=== PATIENT | female | born 1950 | race Caucasian/White ===

== ENCOUNTER → 2018-01-12 08:11 | Outpatient (CLI) | payer MEDICARE, BC, SELFPAY ==
[2018-01-12 09:45] LABS: Alanine Aminotransferase 21 U/L (12-78); Albumin Level 3.8 gm/dL (3.4-5.0); Albumin/Globulin Ratio 1.4 (1.1-1.8); Anion Gap 14.7 mEq/L (5-15); Aspartate Amino Transferase 13 U/L (15-37); Bilirubin,Total 0.4 mg/dL (0.2-1.0); Blood Urea Nitrogen 15 mg/dL (7-18); Calcium 9.3 mg/dL (8.5-10.1); Carbon Dioxide 26 mmol/L (21.0-32.0); Chloride 106 mmol/L (98-107); Creatinine,Serum 1.03 mg/dL (0.55-1.02); Estimated Glomerular Filt Rate 53 ml/min (>60); GFR (African American) 64 ML/MIN (>60); Globulin 2.7 gm/dl (1.3-3.2); Glucose 122 mg/dL (74-106); Potassium 4.7 mmoL/L (3.5-5.1); Sodium 142 mmol/L (136-145); Total Protein,Serum 6.5 gm/dL (6.4-8.2); Triglycerides 145 mg/dL (30-200); VLDL Cholesterol 29 mg/dL (0-40)
[2018-01-12 09:46] LABS: Alkaline Phosphatase 90 U/L (46-116); Chol/HDL Ratio 2.8 (1-3.5); Cholesterol 126 mg/dL (140-200); HDL Cholesterol 45 mg/dL (29-89); LDL Cholesterol 52 mg/dL (0-130); Thyroid Stimulating Hormone 2.08 uIU/ml (0.358-3.740)
[2018-01-12 10:57] LABS: Hemoglobin A1C 6.8 % (0.0-7.0)
== END ==
PROVIDERS: Visit Provider Family Medicine
DX: R73.01 Impaired fasting glucose (principal); E03.9 Hypothyroidism, unspecified; E78.5 Hyperlipidemia, unspecified; I10 Essential (primary) hypertension
CPT/HCPCS: 36415; 80053; 80061; 83036; 84443

== ENCOUNTER → 2018-02-14 12:10 | Outpatient (CLI) | payer MEDICARE, BC, SELFPAY ==
--- NOTE | 2018-02-14 | XR_ITS ---
XR chest 2V HISTORY: Hypertension ITS.REASON: PRE-OP ..HTN..QUIT SMOKING IN 1972 ORDERING PHYSICIAN: Ned Branham MD PATIENT AGE: 67 years COMPARISON: None FINDINGS: Mild cardiomegaly without failure. No lobar consolidation or collapse. There is increased density along left heart border and may be related to pericardial fat pad. The remaining lungs are clear. No acute bony anomalies. IMPRESSION: Cardiomegaly, no acute finding
[2018-02-14 12:42] LABS: Basophils % 0.3 % (0.1-2.0); Eosinophils # 0.4 K/mm3 (0.0-0.4); Eosinophils % 3.5 % (0.1-12.0); Hematocrit 43.3 % (37.0-47.0); Hemoglobin 13.5 g/dL (12.2-16.2); Lymphocytes # 2.9 K/mm3 (0.7-4.5); Mean Corpuscular HGB Conc 31.2 g/dL (31.8-35.4); Mean Corpuscular Hemoglobin 26.8 pg (27.0-31.2); Mean Corpuscular Volume 85.9 fl (81-99); Mean Platelet Volume 8.1 fl (7.4-10.4); Monocytes # 0.5 K/mm3 (0.1-1.0); Monocytes % 4.4 % (1.7-9.3); Neutrophils # 6.5 K/mm3 (1.8-7.8); Neutrophils % 63.8 % (37.0-80.0); Platelet Count 263 K/mm3 (142-424); Red Blood Count 5.04 M/mm3 (4.20-5.40); Red Cell Distribution Width 14.5 % (11.5-17.5); White Blood Count 10.2 K/mm3 (4.8-10.8)
[2018-02-14 13:20] LABS: Alanine Aminotransferase 24 U/L (12-78); Albumin/Globulin Ratio 1.3 (1.1-1.8); Alkaline Phosphatase 91 U/L (46-116); Anion Gap 14.2 mEq/L (5-15); Aspartate Amino Transferase 20 U/L (15-37); Bilirubin,Total 0.5 mg/dL (0.2-1.0); Blood Urea Nitrogen 19 mg/dL (7-18); Calcium 9.8 mg/dL (8.5-10.1); Carbon Dioxide 27 mmol/L (21.0-32.0); Chloride 105 mmol/L (98-107); Creatinine,Serum 0.96 mg/dL (0.55-1.02); Estimated Glomerular Filt Rate 58 ml/min (>60); GFR (African American) 70 ML/MIN (>60); Glucose 108 mg/dL (74-106); Potassium 4.2 mmoL/L (3.5-5.1); Sodium 142 mmol/L (136-145)
== END ==
PROVIDERS: Visit Provider Orthopaedic Surgery
DX: Z01.810 Encounter for preprocedural cardiovascular examination (principal); Z01.812 Encounter for preprocedural laboratory examination
CPT/HCPCS: 36415; 71046; 80053; 85025; 86850; 93005

== ENCOUNTER 2018-02-19 10:22 | Inpatient (IN) ==
--- NOTE | 2018-02-19 14:12 | Progress Note ---
[facility] Anesthesia Checklist - Patient Identification Patient Identification: Arm Band, Verbal (Name & ) - Structural Data Admitted From: Home Planned Operative Procedure/s: orif left tibial plateau fx Consent for Planned Operative Procedure(s) Verified: Yes Verified Documents: Surgical Consent, History and Physical - NPO Status Verified Time NPO: 00:00 - Additional verifications Patient : No Anesthesia Reactions: No Hx Blood Transfusions: No Blood Transfusion Reaction: No Cephalosporin Allergy: No Previous Colonoscopy: No - Cardiovascular Assessment Heart Sounds: S1 & S2 Pulse Strength: Baseline Pulse Rhythm: Regular Peripheral Edema: No - Airway Assessment C-Spine Mobility Assessed: Yes TMJ Mobility Assessed: Yes Dentition: Good Dentition - Neurological Assessment Level of Consciousness: Awake, Alert, Appropriate Hx Seizures: No Numbness or tingling in extremities: No - Anesthesia Plan Anesthesia Risk discussed: Yes Anesthesia Plan: Verified ASA Class: III Anesthesia Type: General [facility] Anesthesia HX I have reviewed the patient's past medical history: Yes Medical History: Reports:: Anxiety, Asthma, Depression, Gastroesophageal Reflux Disease(GERD), Hyperlipidemia, Hypertension Denies:: Cancer, Diabetes Mellitus Type 1, Diabetes Mellitus Type 2, MRSA, Seizures Other Medical History: Reports: Cataracts, Hypothyroidism. Denies: Blood Transfusion Reaction Laterality Cases: Bilateral: Cataract, Tonsillectomy Other Surgeries: Yes: Colonoscopy, Colon Resection, EGD, Other Amputation: No Fractures: Yes *Family Hx:: Cancer, Diabetes, Hyperlipidemia, Hypertension
--- NOTE | 2018-02-19 19:21 | Progress Note ---
[facility] Anesthesia Record Part I Intake, IV Amount: 1,100 Estimated blood loss (mL): 50 Urine output (mL): 400 Blood Products used (#): none Blood Pressure: 130/75 SaO2: 93 Pulse Rate: 100 Respiratory Rate: 18 Temperature: 97.4 F Patient is:: Drowsy, Nasal O2, Stable
--- NOTE | 2018-02-19 19:22 | Progress Note ---
[facility] Anesthesia Record Part II Discharge Time: 19:47 Destination: Medical Surgical Department PACU nurse assessment reviewed?: Yes Patient Condition:: Good Anesthesia Complications:: None
--- NOTE | 2018-02-19 19:40 | Operative Note ---
Date of procedure: 02/19/18 Pre-op Diagnosis:: 1. Closed split, depression fracture lateral tibial plateau, left knee 2. Closed displaced avulsion fracture distal phalanx, right great toe Post-op Diagnosis:: 1. Closed split, depression fracture lateral tibial plateau, left knee 2. Closed displaced avulsion fracture distal phalanx, right great toe Procedure performed:: 1. Open reduction and internal fixation with bone grafting, lateral tibial plateau, left knee 2. Suture anchor repair of EHL tendon, right great toe Surgeon:: Ned Branham MD Wraparound Facilitator(s):: Dr. Dockery OUTDOOR FITNESS TRAINER:: Constantine Ford Anesthesia: GETA Estimated blood loss (mL): 50 Clinical Note:: Patient is a pleasant 67 year old female who sustained injury to her left knee, left ankle and right big toe when she fell down walking while vacationing in [place] on February 08, 2018. She says she was walking across a boardwalk with her and part of the boardwalk gave away and threw her forward and to the right side. She is not sure as to the mechanism of injury to her left knee but thinks that the knee was forced inwards when she fell down. She states that her LEFT knee and ankle became painful and swelled up immediately and she also felt pain in her right big toe. Following the injury she went to the local Emergency Room in [place] where she was diagnosed with a left tibial plateau fracture, left ankle sprain and a right big toe avulsion fracture. She was appropriately immobilized and was advised to see an orthopedic surgeon as soon as possible. She reports that she had burstitis in the LEFT knee prior to this injury. No history of any previous knee injury or surgery. No history of any distal tingling or numbness. 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 She is a borderline diabetic and a non-smoker. Prior to the fall she was mobile and independent and was not using any walking aids. Evaluation in the office is consistent with the above diagnoses. Following evaluation in my office a few days ago, patient was brought for surgery for fixation of the left lateral tibial plateau fracture and repair of the EHL avulsion right great toe. The surgery is indicated to relieve the pain and improve the function of her left knee and right big toe. Operative findings:: Examination of the LEFT knee under anesthesia was performed. A large amount of knee effusion was noted. Knee range of motion was 5-100 degrees of flexion. Grade 1 valgus laxity noted otherwise the knee joint is noted to be ligamentously stable. Intraoperatively, as seen on the preoperative imaging, a split, depression fracture of the lateral tibial plateau was noted. The lateral meniscus was noted to be intact. The bone quality was overall very good. With regards to her right great toe, the EHL tendon was completely avulsed with small comminuted bone fragments from the distal phalanx. The fragments were too small to be internally fixed and therefore had to be excised. The tendon was appropriately repaired using suture anchors. Operative note:: On the day of surgery, I again reviewed the clinical and imaging findings with the patient and her . I have discussed the diagnosis, natural history, management options in detail including both nonsurgical and surgical. Given the nature of the injuries, with the split depression fracture of the lateral tibial plateau of her left knee and the EHL avulsion fracture of the right big toe, I have recommended surgical remediation in the form of an open reduction and internal fixation with bone grafting for her left tibial plateau fracture and open reduction and internal fixation/tendon repair for her right big toe. Following a detailed discussion she wished to proceed with surgery. I have discussed the proposed surgical procedures, risks and benefits and alternatives. We've outlined where the incisions will be on the skin. Risks of surgery discussed include but are not limited to- infection, injury to nerves ( specifically injury to the peroneal nerve) and blood vessels, injury to tendons , compartment syndrome, problems with the wound healing including skin and soft tissue loss, DVT/PE, malunion, nonunion, stiffness, heterotopic ossification, CRPS (complex regional pain syndrome- pain, sensory and temperature changes, swelling and stiffness), painful/prominent hardware, loss of fixation, arthritis , incomplete relief of pain, incomplete return of function, and likely need for further surgery in future and also the risks of anesthesia including heart attack, stroke, and even . We've discussed how there is a small but real possibility of loss of use of the leg, loss of the leg (amputation) or loss of life itself. With regards to the right big toe, I have discussed about stiffness, arthritis, loss of fixation, likely need for further surgery in future including arthrodesis of the IP joint. I have discussed about the bone grafting options for her left proximal tibia including auto and allografts as well as bone graft substitutes. I have discussed the pros and cons of each option in detail. I have told her that we would be using bank bone or bone graft substitutes to fill the void in the proximal tibia. We've also explained how additional surgery may be required and specifically discussed about the likely need for implant removal in future if she needs a total knee arthroplasty. We explained the weightbearing status, immobilization required, the likely need for physical therapy, the possibility of stiffness or arthrofibrosis, chronic pain and we've also discussed the option of nonsurgical treatment. The patient expressed a good understanding and asked appropriate questions. All her questions were answered and she verbalized a good understanding. She desires to proceed with the planned open reduction internal fixation of the left tibial plateau fracture with bone grafting and open reduction internal fixation/tendon repair for her right big toe. A physical examination was performed and documented. The consent form was reviewed and signed. Patient understood the risks, agreed to proceed with surgery, signed the consent form and no guarantees or assurances were given or implied. Patient was brought to the operating room and placed supine on the operating table. All the bony prominences were appropriately padded. A general anesthesia was administered by the anesthesia team. 1. ORIF lateral tibial plateau: First we performed ORIF of the lateral tibial plateau left knee. A well-padded tourniquet cuff was placed over the LEFT upper thigh. Examination of the LEFT knee under anesthesia was performed. A large amount of knee effusion was noted. Knee range of motion was 5-100 degrees of flexion. Grade 1 valgus laxity noted otherwise the knee joint is noted to be ligamentously stable. The LEFT knee was then prepped and draped in the usual sterile fashion. A preprocedure timeout was performed as per protocol. Administration of prophylactic IV antibiotics (Ancef 2 g) was confirmed with the anesthetic team. 1 more gram of Ancef was given intravenously about 2 hours after starting the procedure. The proposed incision was marked on the skin centering over the Gerdy's tubercle. The limb was exsanguinated with Esmarch bandage and the tourniquet was inflated to 350 mmHg. Total tourniquet time is 124 minutes. I then made a straight skin incision for anterolateral approach to the lateral tibial plateau. The incision was carried through the subcutaneous tissue and the iliotibial band was split centering over the Gerdy's tubercle. The iliotibial band was elevated along with the subperiosteal elevation of the proximal attachment of the tibialis anterior muscle from the proximal tibia. A sub-meniscal arthrotomy was performed after placing 2-0 Ethibond tag stitches into the capsule and meniscus. A large hemarthrosis was evacuated from the knee and the joint irrigated with normal saline. This facilitated visualization of the split depression fracture of the lateral tibial plateau. The lateral meniscus was noted to be intact. A depressed posterolateral piece of the articular surface was encountered. The split component of the fracture was very thin and we felt it is not suitable to elevate the articular surface through the split component. Therefore we made a cortical window lower down over the lateral tibial metaphysis. We then accomplished reduction of the articular surface by elevating the fragments from below using various elevators and bone tamps. After achieving satisfactory elevation of the lateral condyle and very good reduction of the articular fragments, the metaphyseal defect has been grafted with allograft bone chips, which were impacted into place from underneath. Next, the split component of the fracture was reduced into place and a pre- contoured Camille lateral proximal tibial locking plate was applied to the lateral aspect of the tibial plateau and held in position with K wires. After confirming satisfactory position of the plate, it was secured into place with both locking and nonlocking screws. All screws were placed in standard AO fashion. C-arm fluoroscopy was used to confirm excellent position of the articular surface on both the AP and lateral fluoroscopic images, as well as positioning of all screws and hardware. I then augmented grafting of the the metaphyseal void using the Hydroset synthetic bone graft substitute. I let this set for a few minutes and then irrigated the knee joint as well as the wound with normal saline. Next, the submeniscal arthrotomy was closed using 2- 0 Ethibond sutures and tied down to the plate. Then the tourniquet was deflated and hemostasis obtained with diathermy cautery. The IT band was closed with 0 Vicryl suture in [id number] fashion followed by closure of the subcutaneous layer with 2-0 Vicryl sutures. The skin was closed with 4-0 Monocryl subcuticular sutures, Dermabond and Steri-Strips. Sterile dressings and pressure bandage was applied. The tourniquet cuff was removed from the thigh. The knee was placed in a knee immobilizer. She tolerated the procedure well and there were no immediate complications. The swab, needle and instruments counts were correct according to scrub team at the end of the procedure. Next we proceed with repair of the EHL avulsion of the right big toe. 2. Repair of the EHL avulsion, right big toe: The right foot was prepped and draped in the usual sterile fashion. A preprocedure timeout was performed as per the hospital protocol. A T-shaped skin incision was marked over the IP joint for EHL avulsion repair. A digital tourniquet was applied at the base of the big toe. The total tourniquet time was approximately 20 minutes. Then the transverse skin incision was made over the IP joint and carried in a single layer to the capsule. After opening the joint, we have noted that the EHL tendon is completely avulsed from the dorsal base of the terminal phalanx with small comminuted bone fragments attached. The fragments were very small and comminuted; therefore, the bone fragments were not suitable for fixation with the screws or K wires. Therefore, we decided to excise the bone fragments and repair the tendon using the suture anchors. To facilitate this I extended the incision proximally in a T-shaped fashion over the dorsum of the toe. This exposed sufficient length of the EHL tendon for repair. I then freshened the site of the bone avulsion and placed two Parcus 2 mm MiTi suture anchors into the terminal phalanx. Each anchor came with 2 separate sutures for tendon repair. I used these to place Welch whipstitch sutures through the tendon. The suture ends were tied to each other bringing the tendon stump onto the raw area over the distal phalanx. This gave us a very good tension-free repair of the EHL tendon onto the terminal phalanx. The toe was put through motion and we noted the fixation to be adequate and stable. Appropriate anchor placement was confirmed under C-arm fluoroscopy imaging. The wound was irrigated with normal saline. Then we proceeded with wound closure in a single layer using 4-0 Ethilon interrupted sutures. The digital tourniquet was removed and I injected 5 mL of 0.25% Marcaine for ring block for the right big toe. Sterile dressings were applied. The patient was then reversed from the anesthetic and transferred onto the [facility]. She was then transported to the postoperative recovery area in stable condition. She tolerated the procedures well and there were no immediate complications. The swab, needle and instruments counts were correct according to scrub team at the end of the procedure. Portable x-rays of LEFT knee AP and lateral views and x- rays of the right foot were obtained in the PACU and were noted to be satisfactory. Postoperatively patient was admitted for observation and further doses of prophylactic antibiotics, DVT prophylaxis as per protocol and IV and oral analgesia as needed. She can be mobilized on first postoperative day with a walker, weight bearing on the right side, heel walking with the Ortho heel as tolerated. Remain strictly nonweightbearing on the left side and keep the knee immobilizer on all the time; follow-up in the office in 1 week's time for wound check and to start passive range of knee movements in a range of motion knee brace. Tourniquet time (min): 124 (Digital tourniquet, right great toe- about 20 minutes) Condition: stable Disposition: floor Specimens:: None Complications:: None
[2018-02-20 06:23] LABS: Basophils % 0.2 % (0.1-2.0); Eosinophils # 0.1 K/mm3 (0.0-0.4); Eosinophils % 0.3 % (0.1-12.0); Hematocrit 40.4 % (37.0-47.0); Hemoglobin 12.6 g/dL (12.2-16.2); Lymphocytes # 3.2 K/mm3 (0.7-4.5); Lymphocytes % 17.6 K/mm3 (10-50); Mean Corpuscular HGB Conc 31.1 g/dL (31.8-35.4); Mean Corpuscular Hemoglobin 27.4 pg (27.0-31.2); Mean Platelet Volume 8.3 fl (7.4-10.4); Monocytes # 1.4 K/mm3 (0.1-1.0); Monocytes % 7.6 % (1.7-9.3); Neutrophils # 13.6 K/mm3 (1.8-7.8); Neutrophils % 74.3 % (37.0-80.0); Platelet Count 311 K/mm3 (142-424); Red Blood Count 4.59 M/mm3 (4.20-5.40); Red Cell Distribution Width 14.3 % (11.5-17.5); White Blood Count 18.3 K/mm3 (4.8-10.8)
[2018-02-20 06:37] LABS: Anion Gap 11.9 mEq/L (5-15); Calcium 8.5 mg/dL (8.5-10.1); Potassium 4.9 mmoL/L (3.5-5.1)
--- NOTE | 2018-02-20 07:40 | Pharmacy Consult Notes ---
[facility] Pharmacy VTE Monitoring - Patient Demographics Admission date: 02/19/18 Report Date: 02/20/18 Time: 07:40 Allergies/Adverse Reactions: Patient Allergies clarithromycin Allergy (Verified 02/14/18 10:02) hives doxycycline Allergy (Verified 02/14/18 10:02) "tears stomach up" levofloxacin [From Levaquin] Allergy (Verified 02/14/18 10:02) Height: 1.7 m Weight: 125.872 kg - VTE Risk Labs: VTE Related Lab Results Hgb 12.6 g/dL (12.2-16.2) 02/20/18 06:00 Hct 40.4 % (37.0-47.0) 02/20/18 06:00 Plt Count 311 K/mm3 (142-424) 02/20/18 06:00 BUN 21 mg/dL (7-18) H 02/20/18 06:00 Creatinine 1.29 mg/dL (0.55-1.02) H 02/20/18 06:00 Estimated Creat Clear 41 mL/min (0-300) 02/20/18 06:00 Was VTE Risk Assessment Performed: Yes VTE Score: 9 VTE Risk Level: Moderate Risk - Prophylaxis VTE Prophylaxis Ordered?: Yes Types of VTE Prophylaxis: IPCS Knee High Location of Applied Device: Bilateral Lower Extremeties - VTE Diagnosis Confirmed Treatment or plan recommended: Continue Current Treatment
[2018-02-20 07:48] VITALS: BP 127/50
[2018-02-20 08:40] LABS: Lymphocytes % 29 % (10-50); Monocytes % 4 % (2-9); Neutrophils % 66 % (42-76); Total Cells Counted 100
[2018-02-20 08:44] LABS: Tear Drop Cells 2+
--- NOTE | 2018-02-20 11:16 | Discharge Summary ---
General - General Admission date:: 02/19/18 Discharge date: 02/20/18 HPI HPI: Patient is a 67 year old female who was admitted to hospital for observation and IV prophylactic antibiotics following uneventful ORIF and bone grafting of the left lateral tibial plateau fracture and suture anchor repair of the EHL avulsion of the right great toe. She injured her left knee, left ankle and right big toe when she fell down while vacationing in [place] on February 08, 2018. She says she was walking across a boardwalk with her and part of the boardwalk collapsed causing her to fall. Following the injury she went to the local Emergency Room in [place] where she was diagnosed with a left tibial plateau fracture, left ankle sprain and a right big toe fracture. Following evaluation in my office a few days ago, patient was brought for surgery for fixation of the left lateral tibial plateau fracture and repair of the atrial level shunt right great toe. She denies any hip or back pain. No history of any distal tingling or numbness. 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 She is a borderline diabetic and a non-smoker. Prior to the fall she was mobile and independent and was not using any walking aids. Hospital Course Hospital Course: Following uncomplicated ORIF and bone grafting of the left lateral tibial plateau fracture and repair of the avulsion of the EHL tendon of the right great toe, patient was admitted to the hospital for observation and further dose of prophylactic antibiotics. Following admission she was stable and progressed well. Her postoperative check x-rays are satisfactory with good alignment and fixation of the left knee. She was advised to ambulate weightbearing on the left side and heel walk on the right side with the OrthoWedge shoe. The left knee was placed in a hinged knee brace locked in full extension. Her pain is well controlled with oral analgesics. Distal neurovascular status is intact. No clinical evidence of DVT. Patient is eating and drinking well without any problems. Patient is hemodynamically stable at the time of discharge. Her neurovascular status in both lower extremities is intact. Pedal pulses 2+ bilaterally and fully sensate distally. No clinical evidence of DVT noted. Patient was cleared for discharge by physical therapy. On the day of discharge, the dressings clean dry and intact. The patient's vital signs have been stable throughout and she is afebrile at the time of discharge. She is being discharged home with home health services. Condition at discharge: improved and stable. Treatments and Procedures: 1. ORIF and bone grafting lateral tibial plateau fracture, left knee. 2. Suture anchor fixation EHL tendon right big toe Objective Vital signs: Temp Pulse Resp BP Pulse Ox 97.4 F L 74 18 127/50 94 L 02/20/18 07:47 02/20/18 07:47 02/20/18 10:52 02/20/18 07:47 02/20/18 09:35 no acute distress, obese - *Routine HEENT Exam Head: Present: normocephalic, atraumatic Eye: Present: EOMI, PERRL ENT: Present: mucous membranes moist - *Routine Neck Exam Present: supple, full ROM, trachea midline - *Routine Respiratory Exam Present: CTA bilaterally. Absent: respiratory distress - *Routine Cardiovascular Exam Present: RRR, Normal S1, Normal S2 - *Routine Abdominal Exam Present: soft, normoactive bowel sounds - *Routine Exam Comments: Casper's catheter in situ - *Routine Extremities Exam Comments: On examination of her left lower extremity, her left knee is in a knee immobilizer. Out of the knee immobilizer, the dressings are clean dry and intact. On examination of her ankle, she is tender over the anterior talofibular ligament. There is mild edema of the left lower extremity. Distally sensation is intact to light throughout. Capillary refill is brisk and dorsalis pedis and posterior tibial pulses are 2+. On examination of her right foot, the dressings are clean dry and intact. She is able to move the smaller toes. Sensation is intact to light touch throughout. Capillary refill is brisk. Imaging: Postoperative check x-ray of left knee and right foot are reviewed along with radiologist report. The x-ray her left knee show a well reduced and well fixed lateral tibial plateau fracture. No evidence of any complications noted on the x-rays. Check x-ray of her right foot are showing 2 suture anchors through the proximal part of the distal phalanx of the great toe. The IP joint is well reduced and well aligned. No comp occasions noted on x-ray. - *Routine Skin Exam Present: intact, dry, warm - *Routine Neurological Exam Present: alert, oriented X3, CN II-XII intact, normal tone, normal speech. Absent: sensory deficit, motor deficit - Routine Psychiatric Exam Present: normal affect, normal thought process, cooperative Results Labs on day of discharge: Labs from last 24 hours 02/20/18 02/20/18 02/19/18 06:00 06:00 Unknown WBC 18.3 H RBC 4.59 Hgb 12.6 Hct 40.4 MCV 88.0 MCH 27.4 MCHC 31.1 L RDW 14.3 Plt Count 311 MPV 8.3 Neut % (Auto) 74.3 Lymph % (Auto) 17.6 [place] % (Auto) 7.6 Eos % (Auto) 0.3 Baso % (Auto) 0.2 Neut # (Auto) 13.6 H Lymph # (Auto) 3.2 [place] # (Auto) 1.4 H Eos # (Auto) 0.1 Baso # (Auto) 0.0 Total Counted 100 Neutrophils % (Manual) 66 Band Neutrophils % 1.0 Lymphocytes % (Manual) 29 Monocytes % (Manual) 4 Platelet Estimate Normal Poikilocytosis 2+ Tear Drop Cells 2+ Sodium 139 Potassium 4.9 Chloride 105 Carbon Dioxide 27 Anion Gap 11.9 BUN 21 H Creatinine 1.29 H Estimated Creat Clear 41 Estimated GFR 41 L Est GFR ( Amer) 50 L Glucose 116 H Calcium 8.5 Urine Color Yellow Urine Appearance Clear Urine pH 6.5 Ur Specific [place] 1.015 Urine Protein Trace Urine Glucose (UA) Negative Urine Ketones 1+ Urine Blood Negative Urine Nitrate Negative Urine Bilirubin Negative Urine Urobilinogen 0.2 Ur Leukocyte Esterase Negative Urine RBC Occasional Urine WBC 3-5 Urine Bacteria 1+ Hyaline Casts 3-5 DS: Diagnosis - Discharge Diagnosis (1) Closed fracture of lateral portion of left tibial plateau Status: Acute (2) History of open reduction and internal fixation (ORIF) procedure Status: Acute (3) Displaced fracture of distal phalanx of toe of right foot Status: Acute (4) Status post tendon repair Status: Acute Discharge Plan - Patient Discharge Instructions ACTIVITY: Continue current activity DIET: regular diet Additional Instructions: Mobilize nonweightbearing on the left lower extremity; locked the knee immobilizer in full extension until further notice. Can heel walk on the right side with protective shoe. - Follow up Plan Follow up with: Ned Branham MD [Staff Physician] - Disposition: Home Health Service Home Medications: Home Medications Medication Instructions Recorded Confirmed Type acetaminophen 500 mg tablet 500 mg PO Q6HP PRN 01/31/18 02/20/18 History fluticasone 100 mcg-salmeterol 50 1 puff INHALATION BID 01/31/18 02/16/18 History mcg/dose blistr powdr for inhalation levalbuterol HFA 45 mcg/actuation 2 puff INHALATION Q4HP PRN 01/31/18 02/20/18 History aerosol inhaler lisinopril 40 mg tablet 40 mg PO DAILY 01/31/18 02/19/18 History montelukast 10 mg tablet 10 mg PO HS 01/31/18 02/20/18 History polyethylene glycol 3350 17 17 gm PO DAILY 01/31/18 02/20/18 History gram/dose oral powder sertraline 100 mg tablet 100 mg PO DAILY 01/31/18 02/20/18 History sulfamethoxazole 400 1 tab PO DAILY tab 01/31/18 02/19/18 History mg-trimethoprim 80 mg tablet simvastatin 80 mg tablet 80 mg PO DAILY 02/14/18 02/16/18 History Levothyroxine Sodium 88 mcg PO DAILY 02/20/18 02/20/18 History [Levothyroxine 88mcg (0.088mg) Tab] Prescriptions/Medication Reconciliation: New Aspirin [Aspirin 325mg Tab] 325 mg PO DAILY #20 tab Docusate Sodium [Docusate Sodium 100mg Cap] 100 mg PO BIDP PRN #14 cap PRN Reason: Constipation Hydrocod/Acet 5/325 mg [[place] 5/325mg tablet] 2 tab PO Q4HP PRN #60 tab PRN Reason: Moderate To Severe Pain Continue montelukast 10 mg tablet 10 mg PO HS lisinopril 40 mg tablet 40 mg PO DAILY sertraline 100 mg tablet 100 mg PO DAILY polyethylene glycol 3350 17 gram/dose oral powder 17 gm PO DAILY levalbuterol HFA 45 mcg/actuation aerosol inhaler 2 puff INHALATION Q4HP PRN PRN Reason: Shortness Of Breath acetaminophen 500 mg tablet 500 mg PO Q6HP PRN PRN Reason: pain simvastatin 80 mg tablet 80 mg PO DAILY fluticasone 100 mcg-salmeterol 50 mcg/dose blistr powdr for inhalation 1 puff INHALATION BID sulfamethoxazole 400 mg-trimethoprim 80 mg tablet 1 tab PO DAILY tab Levothyroxine Sodium [Levothyroxine 88mcg (0.088mg) Tab] 88 mcg PO DAILY Discontinued naproxen 500 mg tablet 500 mg PO BID ibuprofen 200 mg tablet 200 mg PO QID PRN PRN Reason: pain - Additional Information Additional Information: Our recommendations on discharge include nonweightbearing mobilization on the left side with the knee immobilizer locked in full extension. No range of motion exercises to be started on the left knee until further advise. Mobilize weightbearing on the right heel with a protective shoe. Patient will have home health and physical therapy at home. I have strongly advised her not to place any pillow behind the knee. But she can place a pillow under the ankle thus allowing gravity/weight of the leg help the knee to stay in full extension. Patient was also advised to keep the leg elevated and ice the left knee and right big toe on a regular basis. At this stage it is permissible to take a shower without getting the the incisions/dressings wet with shower water. She has absorbable subcuticular Monocryl sutures with Steri-Strips on the left knee and Ethilon sutures for skin closure on the right big toe which will be removed at 2 week postoperative follow-up visit. As patient had surgery on her left knee and right foot, and is to mobilize nonweightbearing on her left side, she is unable to use walker at present. Therefore, I would recommend that she uses a wheelchair for mobilization to begin with. Patient will follow up with me in the office in 1 week's time for wound check and to start range of motion exercises on the left knee at this stage if wound is healing well. Recommend aspirin 325 mg p.o. daily for 3 weeks for DVT prophylaxis. Please feel free to call our office at [phone] or via the hospital terminal makeup operator [phone] for any orthopaedic questions or concerns.
--- NOTE | 2018-03-13 15:49 | Progress Note ---
PN: Obj Ex Vital signs: Temp Pulse Resp BP Pulse Ox 97.4 F L 74 18 127/50 94 L 02/20/18 07:47 02/20/18 07:47 02/20/18 10:52 02/20/18 07:47 02/20/18 09:35 - Urinary Catheter Management Casper Cath placed during this visit: yes Insertion date: 02/19/18 Insertion time: 14:45 Progress Note: A&P (1) Closed fracture of lateral portion of left tibial plateau Status: Acute (2) History of open reduction and internal fixation (ORIF) procedure Status: Acute (3) Displaced fracture of distal phalanx of toe of right foot Status: Acute (4) Status post tendon repair Status: Acute
== END 2018-02-20 13:45 | disposition home health service (06) ==
LOC: OR 10:22 → 2ND 20:29 → OBSVTOIN 20:29 → INTOOBSV 20:29
PROVIDERS: ADMIT Orthopaedic Surgery; ATTEND Orthopaedic Surgery

== ENCOUNTER → 2018-03-07 13:51 | Outpatient (CLI) | payer MEDICARE, BC, SELFPAY ==
--- NOTE | 2018-03-07 13:55 | XR_ITS ---
XR tibia fibula LT 2V CLINICAL INDICATION: ITS.REASON: sp LEFT ORIF lateral tibial plateau dos 02/19/18 ORDERING PHYSICIAN: Ned Branham MD PATIENT AGE: 67 years Comparison: 02/19/2018 FINDINGS: Status post prior ORIF lateral tibial plateau fracture. Lateral bone plate is present with multiple screws with good alignment of the fracture fragments. Fracture line is still visible laterally at the joint space. IMPRESSION: No change status post ORIF lateral tibial plateau fracture with good alignment
--- NOTE | 2018-03-07 13:55 | XR_ITS ---
XR toe RT min 2V CLINICAL INDICATION: ITS.REASON: sp ORIF RT BIG toe/ dos 02-19-18 ORDERING PHYSICIAN: Ned Branham MD PATIENT AGE: 67 years Comparison: 02/08/2018 FINDINGS: There are 2 screws present within the mid and proximal aspect of the distal phalanx of the great toe. Previously noted proximal fracture of the distal phalanx no longer apparent. IMPRESSION: Healing nondisplaced fracture distal phalanx great toe status post ORIF
== END ==
PROVIDERS: PCP Family Medicine; Visit Provider Orthopaedic Surgery
DX: Z98.890 Other specified postprocedural states (principal)
CPT/HCPCS: 73590; 73660; 87070; 87075; 87205

== ENCOUNTER → 2018-04-19 10:40 | Outpatient (CLI) | payer MEDICARE, BC, SELFPAY ==
--- NOTE | 2018-04-19 10:44 | XR_ITS ---
XR toe RT min 2V CLINICAL INDICATION: Follow-up surgery ITS.REASON: status post ORIF rt big toe ORDERING PHYSICIAN: Ned Branham MD PATIENT AGE: 67 years Comparison: 03/07/2018 FINDINGS: No change status post ORIF phalanx of the great toe with [address] Fracture line is not visible. IMPRESSION: No change status post ORIF distal phalanx great toe with good alignment
--- NOTE | 2018-04-19 10:44 | XR_ITS ---
XR tibia fibula LT 2V CLINICAL INDICATION: Follow-up fracture/ORIF ITS.REASON: follow up; ORIF left tibia ORDERING PHYSICIAN: Ned Branham MD PATIENT AGE: 67 years Comparison: 03/07/2018 FINDINGS: Status post ORIF lateral and proximal tibial fracture with bone plate and multiple screws along with bone cement at the proximal and lateral aspect of the tibia. There does remain in good alignment. There is an avulsion fracture of the lateral tibial spine. Horizontal fracture line is again noted involving the lateral tibial plateau. The mid distal aspect of the tibia and fibula have an unremarkable appearance. IMPRESSION: Good alignment with overall no change status post ORIF lateral tibial plateau fracture
== END ==
PROVIDERS: PCP Family Medicine; Visit Provider Orthopaedic Surgery
DX: Z98.890 Other specified postprocedural states (principal)
CPT/HCPCS: 73590; 73660

== ENCOUNTER → 2018-05-18 09:44 | Outpatient (CLI) | payer MEDICARE, BC, SELFPAY ==
--- NOTE | 2018-05-18 09:48 | XR_ITS ---
XR tibia fibula LT 2V CLINICAL INDICATION: Follow-up fracture/ORIF ITS.REASON: follow up ORIF lt ttibia sx 02/20 ORDERING PHYSICIAN: Ned Branham MD PATIENT AGE: 68 years Comparison: 04/19/2018 FINDINGS: Lateral bone plate with transverse screws once again noted along the proximal aspect of the tibia stabilizing the lateral tibial plateau fracture which is in good alignment with only minimal depression of the lateral tibial plateaus. Bone cement once again noted laterally at the proximal tibia IMPRESSION: No change in good alignment status post ORIF lateral tibial plateau fracture
== END ==
PROVIDERS: PCP Family Medicine; Visit Provider Orthopaedic Surgery
DX: S82.122A Displaced fracture of lateral condyle of left tibia, initial encounter for closed fracture (principal); Z98.890 Other specified postprocedural states
CPT/HCPCS: 73590

== ENCOUNTER → 2018-07-04 09:08 | Outpatient (CLI) | payer MEDICARE, BC, SELFPAY ==
--- NOTE | 2018-07-04 09:13 | XR_ITS ---
XR tibia fibula LT 2V CLINICAL INDICATION: Follow-up fracture ITS.REASON: sp orif LEFT tibia sx: 02/19/18 ORDERING PHYSICIAN: Ned Branham MD PATIENT AGE: 68 years Comparison: 05/18/2018 FINDINGS: No change status post ORIF lateral tibial plateau fracture with lateral bone plate and multiple screws in place with good alignment of the fracture fragments. Bone cement present in the proximal tibia laterally as before. Small calcific density is present lung superior aspect of lateral tibial spine and may be due to an avulsion injury unchanged. IMPRESSION: No change status post ORIF lateral tibial plateau fracture with good alignment
== END ==
PROVIDERS: PCP Family Medicine; Visit Provider Orthopaedic Surgery
DX: S82.122A Displaced fracture of lateral condyle of left tibia, initial encounter for closed fracture (principal); Z98.890 Other specified postprocedural states
CPT/HCPCS: 73590; 87070; 87205

== ENCOUNTER 2018-07-12 13:00 | Outpatient (RCR) | payer MEDICARE, BC, SELFPAY ==
--- NOTE | 2018-04-25 16:05 | HMH.PTOPEV ---
PT Outpatient Evaluation Rehab PT Outpatient Evaluation Start: 04/25/18 14:17 Freq: Status: Active Protocol: Document 04/25/18 14:18 SOLIS (Rec: 04/25/18 15:48 [email or web address] [id number]) Electronically Signed By Ziggy Barnett, PT 04/25/18 14:18 Outpatient Therapy Subjective History Subjective History Pt. is a 67 year old female who presents to outpatient PT with s/p L knee ORIF and bone graft (02/19/18) following a L tibial plateau fracture after a fall (02/08/18) in [facility] on vacation. Pt. reports permission from for LLE weight bearing Monday (04/20/18 ). Diagnostic imaging include X-ray and CT scan. Negative for any soft tissue damage. PMH includes tonsilectomy in 1963, left sided nasal growth resection 2002, colon resection 2012, retina wrinkle repair L eye 2014, cataract surgery L/R 2014, and a broken elbow L. See chart for list of current medication. Chief Complaint Pain Stiff Swelling Weakness Symptom Type Ache Throb Numbness Symptoms Relieved By Rest/Positioning Ice OTC Meds Symptoms Aggravated By Standing Physical Activity Walking Prior Functional Limitations None Current Functional Limitations Lifting Housework Dressing Driving Sleeping Standing Sitting Squatting Walking Stairs Balance Bending/Stooping Symptom Description Activity Dependent Level of pain today (0-10) 0 Pain scale - at its best (0-10) 0 Pain scale - at its worst (0-10) 5 Hip/Knee Eval Gait Observation General Gait Pattern Observation Antalgic Gait Assistive Device Assistive Devices Standard Walk
--- NOTE | 2018-05-29 11:15 | HMH.RHREAS ---
Rehab Reassessment Rehab OP Re-assessment Start: 05/29/18 11:11 Freq: Status: Active Protocol: Document 05/29/18 11:11 TERRA (Rec: 05/29/18 11:15 [email or web address] [id number]) Electronically Signed By Dragan Dumont, PT 05/29/18 11:11 Rehab Re-assessment Subjective Subjective Pt reports infrequent pain in the right knee, 5/10 at worst. She also reports improved ambulation and ADL's. Objective Objective Notes AROM right knee: 0-108 deg. PROM right knee: 0-115 deg. MMT: right knee flex/ext and hip flex 4+/5, otherwise 5/5 in right LE. Assessment Progress Assessment Progressing as Expected Assessment Notes Continues to need ROM improvement in right knee, but ambulation and strength much improved. Patient goals met STG: all Goals Not Met LTG: none met Revised Goals none Plan Plan Continue per initial POC. Frequency of Therapy 2 Duration of therapy 8 Time and Billing Re-Eval Time 0 Re-Eval Billing Units 0 PHYSICIAN CERTIFICATION: I certify the specified therapy services for Saida Marrero are required, authorized, and reviewed every 30 days.
== END 2018-07-12 13:05 | disposition home or self-care (01) ==
LOC: PT 13:00
PROVIDERS: Family Provider Family Medicine; PCP Family Medicine; Visit Provider Orthopaedic Surgery
DX: S82.122A Displaced fracture of lateral condyle of left tibia, initial encounter for closed fracture (principal); S92.911A Unspecified fracture of right toe(s), initial encounter for closed fracture
CPT/HCPCS: 97010; 97014; 97016; 97110; 97112; 97116; 97163; 97164; G0283

== ENCOUNTER → 2018-08-02 13:59 | Outpatient (CLI) | payer MEDICARE, BC, SELFPAY ==
--- NOTE | 2018-08-02 14:01 | XR_ITS ---
XR knee LT 3V HISTORY: Follow-up ORIF/fracture ITS.REASON: sp ORIF LT tibia dos 02/19 ORDERING PHYSICIAN: Ned Branham MD PATIENT AGE: 68 years COMPARISON: 02/19/2018 FINDINGS: Lateral bone plate once again noted with multiple screws along the proximal aspect of the tibia stabilizing the lateral tibial plateau fracture with bone cement at the fracture site. There remains cortical discontinuity along the medial aspect of the lateral tibial plateau from the fracture not significant change. Mild hypertrophic changes in present at the tibial spine. Small calcific densities present along the medial aspect of the distal femur and could be related to avulsion of the medial collateral ligament. IMPRESSION: No change status post ORIF lateral tibial plateau fracture with good alignment. Calcific density along the medial femoral condyle which may be related to prior avulsion of the medial collateral ligament.
== END ==
PROVIDERS: PCP Family Medicine; Visit Provider Orthopaedic Surgery
DX: S82.122A Displaced fracture of lateral condyle of left tibia, initial encounter for closed fracture (principal); Z98.890 Other specified postprocedural states
CPT/HCPCS: 73562

== ENCOUNTER 2018-08-30 13:30 | Outpatient (RCR) | payer MEDICARE, BC, SELFPAY ==
--- NOTE | 2018-07-12 16:21 | HMH.PTOPWND ---
Rehab Outpt Wound Evaluation Rehab OP Wound Evaluation Start: 07/12/18 13:06 Freq: Status: Active Protocol: Document 07/12/18 16:13 TERRA (Rec: 07/12/18 16:21 PHORNE [id number]) Electronically Signed By Dragan Dumont, PT 07/12/18 16:13 Subjective/History History History Pt is 68 yowf who presents ~ 4 mos S/P ORIF of left tibial plateau fx with non healing of the distal end of her incision. She reports the wound has been present since very shortly after her surgery . Her surgeon performed a wound culture which was negative for infection. SHe has hx of HTN, HL, Asthma, Anxiety, Depression, and chronic UTI. Subjective Subjective Currently no c/o pain. Wound Eval Wound Left Anterior Knee Wound Type Incision Is This a Chronic Wound Yes Wound Length (cm) 0.2 Wound Width (cm) 0.3 Wound Depth (cm) 0.3 Wound Bed Appearance Yellow Percentage Granulated (%) 50 Percentage of Slough (%) 50 Wound Margins Description Well Defined Undermining Position 9-12 o'clock Undermining Length (cm) 1.1 Surrounding Tissue Appearance [place] Edema Type Pitting Edema Degree 1+ Query Text:1+ Trace, Barely Detectable, Rebound 15-30 seconds 2+ Moderate, Slight Indentation, Rebound 10-20 seconds 3+ Deep, Deeper Indentation, Rebound > 30 seconds 4+ Very Deep, Rebound > 60 seconds Edema Appearance Puffy Drainage Description Serosanguineous Drainage Amount Small Drainage Odor No Odor Wound Topical Solution/Irrigant Saline Irrigant Packing Type Collagen Primary Dressing Composite Comment Optifoam gentle border thin Wound Debridement Method Forceps Wound Debridement Amount of Tissue Minimal Removed Dressing Change Patient Tolerance Tolerated Well Wound Problems/Impairments Impairments Problems/Impairmments Increased Edema Wound Care Needs Impaired Self Care/Self Management Prognosis Rehab Potential Good Clinical Impression Consistent with Diagnosis Yes Short Term Goals Number of Weeks
== END 2018-08-30 13:35 | disposition home or self-care (01) ==
LOC: PT 13:30
PROVIDERS: Visit Provider Orthopaedic Surgery
DX: S82.122A Displaced fracture of lateral condyle of left tibia, initial encounter for closed fracture (principal)
CPT/HCPCS: 97162; 97597

== ENCOUNTER → 2018-09-11 13:03 | Outpatient (CLI) | payer MEDICARE, BC, SELFPAY ==
--- NOTE | 2018-09-11 13:08 | XR_ITS ---
XR knee LT 3V HISTORY: Follow-up surgery/ORIF ITS.REASON: sp ORIF lt tibia, dos 02/19/18 ORDERING PHYSICIAN: Ned Branham MD PATIENT AGE: 68 years COMPARISON: 08/02/2018 FINDINGS: Status post lateral tibial plateau ORIF with lateral bone plate and multiple screws as well as bone cement. There remains good alignment. Calcific densities present dorsal to the distal femur as before. IMPRESSION: No change good alignment status post ORIF tibial plateau fracture
--- NOTE | 2018-09-11 15:01 | XR_ITS ---
XR chest 2V HISTORY: ITS.REASON: HTN,ASTHMA, ORDERING PHYSICIAN: Ned Branham MD PATIENT AGE: 68 years COMPARISON: None FINDINGS: The cardiomediastinal silhouette and pulmonary vascularity are within normal limits. The lungs are clear without infiltrates, suspicious nodules, or pleural effusions. No acute bony abnormalities. IMPRESSION: Negative chest, no acute finding
[2018-09-11 15:31] LABS: Basophils % 0.4 % (0.1-2.0); Eosinophils # 0.2 K/mm3 (0.0-0.4); Eosinophils % 2.7 % (0.1-12.0); Hematocrit 42.1 % (37.0-47.0); Hemoglobin 13.5 g/dL (12.2-16.2); Lymphocytes # 3.3 K/mm3 (0.7-4.5); Lymphocytes % 38.1 % (10-50); Mean Corpuscular HGB Conc 32.1 g/dL (31.8-35.4); Mean Corpuscular Hemoglobin 28.2 pg (27.0-31.2); Mean Corpuscular Volume 87.8 fl (81-99); Mean Platelet Volume 7.5 fl (7.4-10.4); Monocytes # 0.4 K/mm3 (0.1-1.0); Monocytes % 4.8 % (1.7-9.3); Neutrophils # 4.7 K/mm3 (1.8-7.8); Neutrophils % 54.2 % (37.0-80.0); Platelet Count 260 K/mm3 (142-424); Red Blood Count 4.79 M/mm3 (4.20-5.40); Red Cell Distribution Width 15.6 % (11.5-17.5); White Blood Count 8.7 K/mm3 (4.8-10.8)
[2018-09-11 16:18] LABS: Anion Gap 13.5 mEq/L (5-15); Blood Urea Nitrogen 14 mg/dL (7-18); Calcium 8.8 mg/dL (8.5-10.1); Carbon Dioxide 27 mmol/L (21.0-32.0); Chloride 106 mmol/L (98-107); Estimated Glomerular Filt Rate 55 ml/min (>60); GFR (African American) 67 ML/MIN (>60); Glucose 116 mg/dL (74-106); Potassium 4.5 mmoL/L (3.5-5.1); Sodium 142 mmol/L (136-145)
== END ==
PROVIDERS: PCP Family Medicine; Visit Provider Orthopaedic Surgery
DX: Z01.818 Encounter for other preprocedural examination (principal)
CPT/HCPCS: 36415; 71046; 73562; 80048; 85025; 93005

== ENCOUNTER → 2018-09-14 07:50 | Outpatient (CLI) | payer MEDICARE, BC, SELFPAY ==
--- NOTE | 2018-09-14 07:52 | CT_ITS ---
CT knee LT wo con . Reconstructed 3-D volume rendering images with shading included Ordering Physician: Ned Branham MD Patient Age: 68 years: Female HISTORY: .: sp ORIF lateral tibial plateaufracture. . Knee pain. Removal hardware September 25 TECHNIQUE: Helical CT scanning performed left knee with no IV contrast utilized. Axial sagittal and coronal reconstructions performed on CT workstation. . 3-D volume reconstruction images with shading also performed on independent workstation....... [address] scans at this facility used one or more dose reduction techniques , viz: automatic exposure control, ma/Kv adjustment per patient's size, (including targeted exam where dose matched to the indication; i.e. head); or iterative reconstruction technique COMPARISON :Plain film left knee studies from September 11, 2018, August 02, 2018 & January 2018 FINDINGS : Lateral bone plate once again noted along theproximal tibia stabilizing the lateral tibial plateau fracture. . bone cement utilized at fracture site.. The lateral metallic plate secured by multiple screws entering laterally and transversing the entire proximal tibia passing through its medial cortex... Minimal streak artifact from metallic elements. There is mild cortical discontinuity and step-off at this mildly comminuted lateral tibial plateau fracture. . I performed additional 3-D volume rendering images of the proximal tibia (subtracting the femoral condyles), on CT workstation. These images , along with axial images nicely demonstrate the roughly 2 cm diameter mildly impacted segment towards posterior aspect lateral tibial plateau. . Additional comminution most evident here. The mild cortical discontinuity and step-off related to this impacted segment also nicely seen on sagittal image 39 The superior most screw, passes just beneath this mildly impacted segment, & with barely evident if any cortical bone overlying, the superior margin of the screw, towards articular surface (. Coronal image 35, 34 & sagittal images 39-36.) Stable fragmentation above the lateral tibial spine again noted as seen on previous plain film. This along the course of ACL, near insertion ..If significant persistent knee pain remaining May want to consider arthroscopy to exclude any ACL injury into further evaluate the tibial plateau Also With this mildly impacted lateral tibial plateau segment there becomes more pronounced relative osseous prominence at medial aspect of lateral tibial plateau approaching tibial spines.. This is nicely demonstrated on sagittal image 37 & 36.-Suggestion of additional joint space narrowing where this tibial bone prominence there abuts the articulating lateral femoral condyle.-Associated subtle subarticular lucency throughout opposing lateral femoral condyle in this region. May reflect developing subchondral cystic changes where the joint space is narrowed... Degenerative changes at knee are most pronounced at medial compartment . Degenerative changes at medial compartment syndrome. Sclerosis & Narrowing of the medial compartment to1.5 mm. moderate marginal osteophytes most evident about the medial compartment.. . coronal images also note slight lateral shift of the tibia relative to the femur. There is a small osseous density on there the insertion of the MCL which suspect reflects prior MCL insertion injury or old avulsion here ( Jonelle -smith ) Mild/moderate Joint effusion most evident at suprapatellar bursa. And overlying the medial joint. Patellofemoral relationships appear normal. Proximal Fibula unremarkable. IMPRESSION: . 1..Status post ORIF lateral tibial plateau fracture ..... Healing Comminuted lateral tibial plateau fracture shows a area of mild impaction most evident towards
[2018-09-14 09:17] LABS: C-Reactive Protein 1.9 mg/L (0.0-0.9)
[2018-09-14 12:10] LABS: Erythrocyte Sedimentation Rate 12 mm/hr (0-30)
== END ==
PROVIDERS: PCP Family Medicine; Visit Provider Orthopaedic Surgery
DX: Z01.818 Encounter for other preprocedural examination (principal); Z98.890 Other specified postprocedural states; B99.9 Unspecified infectious disease; S82.122D Displaced fracture of lateral condyle of left tibia, subsequent encounter for closed fracture with routine healing
CPT/HCPCS: 36415; 73700; 85651; 86140

== ENCOUNTER → 2018-10-09 12:54 | Outpatient (CLI) | payer MEDICARE, BC, SELFPAY ==
--- NOTE | 2018-10-09 13:00 | XR_ITS ---
XR knee LT 2V HISTORY: Follow-up surgery ITS.REASON: sp 2 week LT TIBIA hardware removal ORDERING PHYSICIAN: Ned Branham MD PATIENT AGE: 68 years COMPARISON: 09/25/2018 FINDINGS: There remains good alignment of the lateral tibial plateau in this patient that has had recent hardware removed. There is some cortical irregularity involving the medial aspect of the lateral tibial plateau. This is not significant change. No displaced fragments are evident. There has been some resorption of the antibiotic beads. There is some increased density in the pretibial region proximally and could be related to some residual bone cement within the soft tissues. Mild osteoarthritic changes are present at the medial compartment and patellofemoral joint. Small residual fragment once again noted at the lateral tibial spine region IMPRESSION: Good alignment status post lateral tibial bone plate removal as described above
== END ==
PROVIDERS: PCP Family Medicine; Visit Provider Orthopaedic Surgery
DX: Z48.89 Encounter for other specified surgical aftercare (principal)
CPT/HCPCS: 73560

== ENCOUNTER → 2018-12-21 09:50 | Outpatient (CLI) | payer MEDICARE, BC, SELFPAY ==
--- NOTE | 2018-12-21 09:55 | XR_ITS ---
XR knee LT 2V HISTORY: Follow-up surgery ITS.REASON: status post LT tibia hardware removal ORDERING PHYSICIAN: Ned Branham MD PATIENT AGE: 68 years COMPARISON: None FINDINGS: There is an old left lateral tibial plateau fracture with bone cement along the fracture lines. There is good alignment of the fracture fragments. A small loose bodies present at the intercondylar region of the proximal tibia which is IMPRESSION: Postsurgical changes with old lateral tibial plateau fracture. No change with no acute finding
== END ==
PROVIDERS: PCP Family Medicine; Visit Provider Orthopaedic Surgery
DX: Z48.89 Encounter for other specified surgical aftercare (principal)
CPT/HCPCS: 73560

== ENCOUNTER → 2018-12-31 08:21 | Outpatient (CLI) | payer MEDICARE, BC, SELFPAY ==
--- NOTE | 2018-12-31 08:26 | MM_ITS ---
MM Dig screening mamm BI w/CAD CAD Screening COMPARISON: Digital mammograms with CAD 08/05/2015 INDICATION: There is a history of breast cancer in patient's sister diagnosed at age 53 there is been previous cyst aspiration left breast. TECHNIQUE: Standard CC and MLO images were obtained. R2 CAD reviewed. FINDINGS: Moderate diffuse fibroglandular densities are seen throughout both breasts. There are multiple nodular densities in each breast as noted previously and previous ultrasound study showed multiple benign-appearing cyst in each breast. Some of the nodular densities have increased in size and some have decreased in size since the previous exam in 2014. Since there has not been an ultrasound study since 2012 and would recommend the patient return for ultrasound both breast. There is a benign-appearing calcification in each breast. IMPRESSION: Heterogenic parenchymal pattern likely due to prominent fibrocystic changes however recommend the patient return for ultrasound examination both breast BI-RADS Category: 0 Need Additional Imaging Evaluation RECOMMENDED FOLLOW-UP: IMM - IMMEDIATE FOLLOW-UP RECOMMENDED (A letter has been sent to the patient regarding results of the study.)
== END ==
PROVIDERS: PCP Family Medicine; Visit Provider Family Medicine
DX: Z12.31 Encounter for screening mammogram for malignant neoplasm of breast (principal)
CPT/HCPCS: 77067

== ENCOUNTER → 2019-01-29 10:21 | Outpatient (CLI) | payer MEDICARE, BC, SELFPAY ==
--- NOTE | 2019-01-29 10:26 | US_ITS ---
US breast RT complete INDICATION: Follow-up abnormal mammogram ORDERING PHYSICIAN: Destiney Rodriguez APRN PATIENT AGE: 68 years COMPARISON: 12/31/2018, 08/05/2015, 02/05/2013 TECHNIQUE: Right breast ultrasound with axilla FINDINGS: 8 mm x 9 mm cyst at 12:00 with a small adjacent cyst at 4 mm. 5 mm cyst also noted at 1:00. 9 mm hypoechoic nodule at 2:00. This does have some low-level echoes but could be due to the dense breast tissue and location of the nodule. 6 mm cyst at 8:00, 5 mm cyst at 10:00, 10 mm cyst at 11:00,. No suspicious nodules evident. IMPRESSION: Probably benign findings. Multiple cysts along with hypoechoic nodules which may represent complex cysts . Recommend 6 month sonographic and mammographic follow-up. No suspicious abnormalities apparent BI-RADS Category: 3 Probably Benign Finding Short Term Follow-up RECOMMENDED FOLLOW-UP: 6M - 6 MONTH FOLLOW-UP (A letter has been sent to the patient regarding results of the study.)
--- NOTE | 2019-01-29 10:26 | US_ITS ---
US breast LT complete INDICATION: Follow-up abnormal mammogram ORDERING PHYSICIAN: Destiney Rodriguez APRN PATIENT AGE: 68 years COMPARISON: None TECHNIQUE: 12/31/2018 FINDINGS: There are multiple right breast cysts. There is a hypoechoic 9 mm nodule at 12:00. This has some low-level internal echoes but could be artifactual. There is enhanced through transmission of sound. The millimeters cyst at 1:00, 6 x 2 mm cyst at 1:00, 8 x 3 mm hypoechoic nodule at 4:00 with some internal echoes. 14 x 13 mm cyst at 6:00 near the nipple. There is a complicated cystic lesion at 7:00 9 x 12 mm with some internal septations and mild irregularity of the lateral wall. At 11:00 there is a hypoechoic nodule at 11 x 9 mm which contains some internal echoes but could be related to the technique. No suspicious nodules were evident IMPRESSION: Multiple probably benign appearing nodules some of which contain some low-level echoes. Six-month follow-up suggested mammographically and sonographically BI-RADS Category: 3 Probably Benign Finding Short Term Follow-up RECOMMENDED FOLLOW-UP: 6M - 6 MONTH FOLLOW-UP (A letter has been sent to the patient regarding results of the study.)
== END ==
PROVIDERS: PCP Family Medicine; Visit Provider Nurse Practitioner Family
DX: R92.8 Other abnormal and inconclusive findings on diagnostic imaging of breast (principal)
CPT/HCPCS: 76641

== ENCOUNTER → 2019-06-18 09:40 | Outpatient (CLI) | payer MEDICARE, BC, SELFPAY ==
--- NOTE | 2019-06-18 09:42 | XR_ITS ---
PROCEDURE: XR DEXA AXIAL SKELETON CLINICAL HISTORY: POST MENOPAUSAL COMPARISON: No exams were available for comparison FINDINGS: L1-L4 density is 1.586 grams/centimeters sq with a T-score of 3.4. Left femoral neck density is 0.751 grams/centimeters sq with T-score -2.1 consistent with osteopenia IMPRESSION: Osteopenia with moderate fracture risk. Treatment advised. Suggest follow-up exam May 2021 Dictated by: Ruben Carnes MD 06/18/2019 17:46 Electronically signed by Ruben Carnes MD in [place] 06/18/2019 17:46
== END ==
PROVIDERS: PCP Family Medicine; Visit Provider Family Medicine
DX: Z78.0 Asymptomatic menopausal state (principal)
CPT/HCPCS: 77080

== ENCOUNTER → 2020-01-09 09:28 | Outpatient (CLI) | payer MEDICARE, BC, SELFPAY ==
[2020-01-09 10:24] LABS: Chloride 106 mmol/L (98-107); Potassium 4.5 mmoL/L (3.5-5.1); Sodium 138 mmol/L (136-145)
[2020-01-09 10:27] LABS: Alanine Aminotransferase 20 U/L (12-78); Albumin Level 4.1 g/dl (3.5-5.0); Albumin/Globulin Ratio 1.5 (1.1-1.8); Alkaline Phosphatase 81 U/L (38-126); Anion Gap 12.5 mEq/L (5-15); Aspartate Amino Transferase 23 U/L (14-36); Bilirubin,Total 0.5 mg/dl (0.2-1.3); Blood Urea Nitrogen 14 mg/dl (7-17); Carbon Dioxide 24 mmol/L (22.0-30.0); Cholesterol 107 mg/dl (140-200); Estimated Glomerular Filt Rate 62 ml/min (>60); GFR (African American) 75 ML/MIN (>60); Globulin 2.7 g/dL (1.3-3.2); Total Protein,Serum 6.8 g/dl (6.3-8.2); Triglycerides 146 mg/dl (30-150); VLDL Cholesterol 29 mg/dL (0-40)
[2020-01-09 10:28] LABS: Calcium 10.1 mg/dl (8.4-10.2); Chol/HDL Ratio 2.2 (1-3.5); Glucose 141 mg/dl (74-100); HDL Cholesterol 49 mg/dl (40-60)
[2020-01-09 10:39] LABS: Direct LDL Cholesterol 55.27 mg/dL (100-129)
[2020-01-09 10:58] LABS: Thyroid Stimulating Hormone 1.75 uIU/mL (0.465-4.68)
== END ==
PROVIDERS: Visit Provider Family Medicine
DX: E03.9 Hypothyroidism, unspecified (principal); E78.5 Hyperlipidemia, unspecified; I10 Essential (primary) hypertension
CPT/HCPCS: 36415; 80053; 80061; 84443

== ENCOUNTER → 2020-01-21 08:53 | Outpatient (CLI) | payer MEDICARE, BC, SELFPAY ==
--- NOTE | 2020-01-21 08:57 | MM_ITS ---
PROCEDURE: MM DIG SCREENING MAMM BI W/CAD Digital Breast Tomosynthesis Included CLINICAL INDICATION: SCREENING there is a history of breast cancer patient's sister diagnosed at age 53. There has been a previous cyst aspiration left breast. COMPARISON: [facility] DIG MAMM-SCREEN DAISY from 01/17/2013 [facility] DIG MAMM-SCREEN DAISY from 08/05/2015 DIG MAMM-SCREEN DAISY from 12/31/2018 TECHNIQUE: Standard CC and MLO images and 3D Tomosynthesis was obtained. R2 CAD reviewed. FINDINGS: Multiple diffuse nodular densities are seen throughout both breasts as noted previously. They are better demonstrated on carlos images and mostly are stable. Some cystic structures have increased in size others have decreased in size. The carlos images are most helpful in confirming smooth benign-appearing borders to the lesions. Previous ultrasound studies have shown multiple cystic structures in both breast some of which showing internal echoes likely due to complex cysts. There is no definite new or suspicious lesion in either breast and no suspicious microcalcifications. There are multiple small nodes in both axilla as noted previously. IMPRESSION: Stable exam with fibrocystic changes BI-RAD Category: 2 Benign Finding(s) FOLLOW-UP: 1YR 1 Year Follow-up (A letter has been sent to the patient regarding results of the study.) Dictated by: Dr. Jaime Martinez MD 01/21/2020 11:[address] Jaime Martinez MD in [place] 01/21/2020 11:53
== END ==
PROVIDERS: PCP Family Medicine; Visit Provider Family Medicine
DX: Z12.31 Encounter for screening mammogram for malignant neoplasm of breast (principal)
CPT/HCPCS: 77063; 77067

== ENCOUNTER → 2020-02-07 13:46 | Outpatient (CLI) | payer MEDICARE, BC, SELFPAY ==
--- NOTE | 2020-02-07 13:46 | US_ITS ---
PROCEDURE: US TRANSVAGINAL CLINICAL INDICATION: US T/V- postmenopausal bleeding COMPARISON: No exams were available for comparison FINDINGS: UTERUS: 7cm x 6cmx 6cm with a combined endometrial thickness of 18mm there is a hypoechoic area along the posterior aspect of the body and fundus of the uterus measuring 4 x 2.4 cm consistent with a fibroid. A coarse area of calcification is present in the fundal portion of the uterus measuring 14 mm consistent with a fibroid. There is an additional 14 x 18 mm calcified lesion in the right aspect of the uterus consistent with fibroid. LEFT OVARY: [id number] with a volume of 7.6ml. There is a 1.5 cm left ovarian cyst. Right ovary is not identified. RIGHT OVARY: Not visible IMPRESSION: Thickened endometrium. Multiple uterine fibroids Dictated by: Ruben Carnes MD 02/07/2020 16:14 Electronically signed by Ruben Carnes MD in [place] 02/07/2020 16:14
== END ==
PROVIDERS: PCP Family Medicine; Visit Provider Obstetrics & Gynecology
DX: N95.0 Postmenopausal bleeding (principal)
CPT/HCPCS: 76830

== ENCOUNTER → 2020-03-03 10:56 | Outpatient (CLI) | payer MEDICARE, BC, SELFPAY ==
[2020-03-03 11:26] LABS: Basophils % 0.4 % (0.1-2.0); Eosinophils # 0.4 K/mm3 (0.0-0.4); Eosinophils % 3.6 % (0.1-12.0); Hematocrit 42.5 % (37.0-47.0); Hemoglobin 13.8 g/dL (12.2-16.2); Lymphocytes # 3.5 K/mm3 (0.7-4.5); Lymphocytes % 33.1 % (10-50); Mean Corpuscular HGB Conc 32.6 g/dL (31.8-35.4); Mean Corpuscular Hemoglobin 28.7 pg (27.0-31.2); Mean Corpuscular Volume 88.1 fl (81-99); Mean Platelet Volume 8.4 fl (7.4-10.4); Monocytes # 0.4 K/mm3 (0.1-1.0); Neutrophils # 6.2 K/mm3 (1.8-7.8); Neutrophils % 58.9 % (37.0-80.0); Platelet Count 254 K/mm3 (142-424); Red Blood Count 4.82 M/mm3 (4.20-5.40); Red Cell Distribution Width 14.4 % (11.5-17.5); White Blood Count 10.5 K/mm3 (4.8-10.8)
[2020-03-03 12:42] LABS: Alanine Aminotransferase 18 U/L (12-78); Albumin Level 4.4 g/dl (3.5-5.0); Albumin/Globulin Ratio 1.6 (1.1-1.8); Alkaline Phosphatase 103 U/L (38-126); Anion Gap 15.2 mEq/L (5-15); Aspartate Amino Transferase 25 U/L (14-36); Bilirubin,Total 0.4 mg/dl (0.2-1.3); Blood Urea Nitrogen 10 mg/dl (7-17); Calcium 9.7 mg/dl (8.4-10.2); Carbon Dioxide 27 mmol/L (22.0-30.0); Chloride 104 mmol/L (98-107); Estimated Glomerular Filt Rate 55 ml/min (>60); GFR (African American) 66 ML/MIN (>60); Globulin 2.8 g/dL (1.3-3.2); Glucose 123 mg/dl (74-100); Potassium 5.2 mmoL/L (3.5-5.1); Sodium 141 mmol/L (136-145); Total Protein,Serum 7.2 g/dl (6.3-8.2)
[2020-03-03 13:29] LABS: Coronavirus 19 IgG Antibody Negative (Negative); Coronavirus 19 IgM Antibody Negative (Negative)
== END ==
PROVIDERS: Visit Provider Obstetrics & Gynecology
DX: Z01.818 Encounter for other preprocedural examination (principal); N95.0 Postmenopausal bleeding
CPT/HCPCS: 36415; 80053; 85025; 86328

== ENCOUNTER 2020-03-06 06:11 | Day surgery (SDC) | payer MEDICARE, BC, SELFPAY ==
[2020-03-05 10:58] VITALS: BMI 45.6
[2020-03-06] VITALS (14 sets, daily range): BP systolic 109–167; BP diastolic 55–116; PULSE 67–88; RESP 12–26; TEMP 36.4–36.6; O2SAT 92–96
--- NOTE | 2020-03-06 07:05 | P.PN_ITS ---
[facility] Anesthesia Checklist - Patient Identification Patient Identification: Arm Band - Structural Data Admitted From: Home Planned Operative Procedure/s: hysteroscopy, d&c, myosure ablation Consent for Planned Operative Procedure(s) Verified: Yes Verified Documents: Surgical Consent, History and Physical - NPO Status Verified Time NPO: 00:00 - Additional verifications Anesthesia Reactions: No Hx Blood Transfusions: No Blood Transfusion Reaction: No - Airway Assessment C-Spine Mobility Assessed: Yes (mp2) TMJ Mobility Assessed: Yes Dentition: Good Dentition - Neurological Assessment Level of Consciousness: Awake, Alert - Anesthesia Plan Anesthesia Risk discussed: Yes Anesthesia Plan: Verified ASA Class: III Anesthesia Type: General [facility] History I have reviewed the patient's past medical history: Yes Medical History: Reports:: Anxiety, Asthma, Depression, Gastroesophageal Reflux Disease(GERD), Hyperlipidemia, Hypertension Denies:: Cancer, Diabetes Mellitus Type 1, Diabetes Mellitus Type 2, Internal Pacemaker, MRSA, Seizures *Have you ever received a pneumonia vaccine?: Yes *Have you received a flu vaccine this season?: Yes Other Medical History: Reports: Cataracts, Hypothyroidism. Denies: Blood Transfusion Reaction Anesthesia experience/problems:: nac Laterality Cases: Left: Arthroscopy Knee, Bilateral: Tonsillectomy, Other Other Surgeries: Yes: Appendectomy, Colonoscopy, Colon Resection, EGD, Sinus Joaquin rgery, Other. No: Pacemaker Amputation: No Fractures: Yes (L Leg fx) - *Social History Last grade of school completed: Some college Smoking Status: Never smoker #Yrs smoked (if former smoker): 5 Alcohol Intake: never Alcohol Intake Frequency:: other Substance Use Type: denies use *Occupational Status:: retired Housing: house Household Members: spouse *Travel in the last 8 weeks: None - Psychiatric History Pschychiatric History:: Reports:: Anxiety, Depression Family Hx:: Cancer, Diabetes, Hyperlipidemia, Hypertension
--- NOTE | 2020-03-06 09:12 | P.PN_ITS ---
[facility] Anesthesia Record Part I Intake, IV Amount: 800 Estimated blood loss (mL): 0 Urine output (mL): 250 Blood Pressure: 140/70 SaO2: 94 Pulse Rate: 76 Respiratory Rate: 12 Temperature: 97.6 F Patient is:: Awake, Stable Stable to PACU at:: 09:05
--- NOTE | 2020-03-06 10:16 | HMH.OPNOTE ---
Date of procedure: 03/06/20 Pre-op Diagnosis:: 1. Post-menopausal bleeding 2. Thickened endometrium Post-op Diagnosis:: Same Procedure performed:: D&C Hysteroscopy with Myosure Surgeon:: Lorene Soler MD ENGINEER [employer]OTE [employer] DIESEL:: Dennis Brandt Anesthesia: GETA Estimated blood loss (mL): 5 Operative findings:: 3 intracavitary masses Operative note:: The patient was taken to the OR and general anesthesia administered without difficulty. She was prepped/draped in lithotomy position. The cervix was dilated and hysteroscopic evaluation performed. Three large masses were visualized within the endometrial cavity, consistent with polyps. The Myosure was used to excise these lesions and to sample endometrial tissue throughout the cavity. Once this was completed, all instruments were removed from her uterus and vagina. She was taken out of lithotomy position, awakened from anesthesia and taken to the PACU in stable condition. All sponge, needle & instrument counts correct. EBL 5cc . Condition: stable Disposition: PACU Specimens:: endometrial curettings Complications:: none
--- NOTE | 2020-03-06 14:24 | P.PN_ITS ---
[facility] Anesthesia Record Part II Discharge Time: 09:35 Destination: [facility] PACU nurse assessment reviewed?: Yes Patient Condition:: Good Anesthesia Complications:: None Swallowing reflex intact?: Yes Cyanosis?: Yes Blood Pressure: 112/59 Pulse Rate: 72 Temperature: 97.8 F Mental Status: Alert & Oriented Pain level:: 1 Nausea and/or vomitting:: None Intake, IV Amount: 1,000
== END 2020-03-06 10:52 | disposition home or self-care (01) ==
PROVIDERS: PCP Family Medicine; Visit Provider Obstetrics & Gynecology
PROC: (CPT 58563; principal; 2020-03-06 08:00)
DX: N95.0 Postmenopausal bleeding (principal); R93.89 Abnormal findings on diagnostic imaging of other specified body structures; N84.0 Polyp of corpus uteri; Z88.1 Allergy status to other antibiotic agents; F41.9 Anxiety disorder, unspecified; J45.909 Unspecified asthma, uncomplicated; F32.9 Major depressive disorder, single episode, unspecified; K21.9 Gastro-esophageal reflux disease without esophagitis; E78.5 Hyperlipidemia, unspecified; I10 Essential (primary) hypertension; Z90.49 Acquired absence of other specified parts of digestive tract; Z79.899 Other long term (current) drug therapy; Z90.89 Acquired absence of other organs; Z87.891 Personal history of nicotine dependence
CPT/HCPCS: 58563; 88305; 96374; J2405

== ENCOUNTER → 2020-04-03 11:38 | Outpatient (CLI) | payer MEDICARE, BC, SELFPAY ==
[2020-04-03 11:46] LABS: Adenovirus F 40/41, stool Not Detected (NotDetected); Astrovirus Not Detected (NotDetected); Campylobacter Not Detected (NotDetected); Clostridium Difficile A/B, PCR Not Detected (NotDetected); Cryptosporidium Not Detected (NotDetected); Cyclospora Cayetanesis Not Detected (NotDetected); Entamoeba histolytica Not Detected (NotDetected); Enteroaggregative E coli Not Detected (NotDetected); Enteropathogenic E coli Not Detected (NotDetected); Enterotoxigenic E coli Not Detected (NotDetected); Giardia lamblia Not Detected (NotDetected); Norovirus Not Detected (NotDetected); Plesimonas Shigalloides, PCR Not Detected (NotDetected); Rotavirus A Not Detected (NotDetected); Salmonella, PCR Not Detected (NotDetected); Sapovirus Not Detected (NotDetected); Shiga-like toxin E coli Not Detected (NotDetected); Shigella Enterovasive E coli Not Detected (NotDetected); Vibrio Cholerae Not Detected (NotDetected); Vibrio, PCR Not Detected (NotDetected); Yersinia Entercolitica, PCR Not Detected (NotDetected)
== END ==
PROVIDERS: Visit Provider Physician Assistant
DX: R19.7 Diarrhea, unspecified (principal)
CPT/HCPCS: 87506

== ENCOUNTER → 2021-02-05 08:35 | Outpatient (CLI) | payer MEDICARE, BC, SELFPAY ==
[2021-02-05 09:57] LABS: Chloride 105 mmol/L (98-107); Potassium 4.4 mmoL/L (3.5-5.1); Sodium 137 mmol/L (136-145)
[2021-02-05 10:00] LABS: Alanine Aminotransferase 19 U/L (12-78); Albumin Level 4.1 g/dl (3.5-5.0); Albumin/Globulin Ratio 1.6 (1.1-1.8); Alkaline Phosphatase 107 U/L (38-126); Anion Gap 15.4 mEq/L (5-15); Aspartate Amino Transferase 22 U/L (14-36); Bilirubin,Total 0.4 mg/dl (0.2-1.3); Blood Urea Nitrogen 12 mg/dl (7-17); Carbon Dioxide 21 mmol/L (22.0-30.0); Cholesterol 148 mg/dl (140-200); Estimated Glomerular Filt Rate 71 ml/min (>60); GFR (African American) 86 ML/MIN (>60); Globulin 2.6 g/dL (1.3-3.2); Total Protein,Serum 6.7 g/dl (6.3-8.2); Triglycerides 175 mg/dl (30-150); VLDL Cholesterol 35 mg/dL (0-40)
[2021-02-05 10:01] LABS: Calcium 8.9 mg/dl (8.4-10.2); Glucose 218 mg/dl (74-100); HDL Cholesterol 49 mg/dl (40-60)
[2021-02-05 10:13] LABS: Direct LDL Cholesterol 78.35 mg/dL (100-129)
[2021-02-05 10:19] LABS: Triiodothryronine (T3) Uptake 31 % (23.5-40.5)
[2021-02-05 10:20] LABS: T4 (Thyroxine) 6.5 ug/dl (5.53-11.0)
[2021-02-05 10:33] LABS: Thyroid Stimulating Hormone 2.85 uIU/mL (0.465-4.68)
== END ==
PROVIDERS: Visit Provider Family Medicine
DX: I10 Essential (primary) hypertension (principal); E78.5 Hyperlipidemia, unspecified; E03.9 Hypothyroidism, unspecified; R73.01 Impaired fasting glucose
CPT/HCPCS: 36415; 80053; 80061; 83036; 84436; 84443; 84479

== ENCOUNTER 2021-06-19 14:01 | Observation (INO) | payer MEDICARE, BC, SELFPAY ==
[2021-06-19 14:01] VITALS: BP 151/64; PULSE 70; RESP 16; TEMP 36.7; O2SAT 97; BMI 43.9
[2021-06-19 14:46] LABS: Basophils # 0.1 K/mm3 (0-0.2); Basophils % 0.6 % (0.1-2.0); Eosinophils # 0.3 K/mm3 (0.0-0.4); Eosinophils % 2.6 % (0.1-12.0); Hematocrit 41.6 % (37.0-47.0); Hemoglobin 13.3 g/dL (12.2-16.2); Lymphocytes # 3.5 K/mm3 (0.7-4.5); Lymphocytes % 33.6 % (10-50); Mean Corpuscular Hemoglobin 28.5 pg (27.0-31.2); Mean Corpuscular Volume 89.2 fl (81-99); Mean Platelet Volume 8.8 fl (7.4-10.4); Monocytes # 0.4 K/mm3 (0.1-1.0); Monocytes % 3.7 % (1.7-9.3); Neutrophils # 6.2 K/mm3 (1.8-7.8); Neutrophils % 59.5 % (37.0-80.0); Platelet Count 323 K/mm3 (142-424); Red Blood Count 4.66 M/mm3 (4.20-5.40); White Blood Count 10.4 K/mm3 (4.8-10.8)
[2021-06-19 14:48] LABS: Occult Blood,Stool Positive (Negative)
[2021-06-19 15:00] LABS: Chloride 107 mmol/L (98-107); Sodium 141 mmol/L (136-145)
[2021-06-19 15:02] LABS: Blood Urea Nitrogen 7 mg/dl (7-17); Creatinine Clearance Estimated 49 mL/min (50-200); Estimated Glomerular Filt Rate 82 ml/min (>60); GFR (African American) 100 ML/MIN (>60)
[2021-06-19 15:03] LABS: Alanine Aminotransferase 17 U/L (12-78); Albumin Level 3.8 g/dl (3.5-5.0); Albumin/Globulin Ratio 1.4 (1.1-1.8); Alkaline Phosphatase 86 U/L (38-126); Aspartate Amino Transferase 30 U/L (14-36); Bilirubin,Total 0.3 mg/dl (0.2-1.3); Calcium 9.2 mg/dl (8.4-10.2); Carbon Dioxide 25 mmol/L (22.0-30.0); Globulin 2.8 g/dL (1.3-3.2); Glucose 136 mg/dl (74-100); Total Protein,Serum 6.6 g/dl (6.3-8.2)
[2021-06-19 15:30] VITALS: BP 139/55; PULSE 71; RESP 17; O2SAT 95
--- NOTE | 2021-06-19 15:51 | HMH.EDGENADL ---
ED Disposition Clinical Impression: Lower GI bleeding Disposition: Admitted as Observation Condition on Discharge: Good Instructions: DI for Gastrointestinal Bleeding Referrals: David Harrison MD [Primary Care Provider] - - Critical Care Critical Care Time: No Attestation: On 06/19/21, the high probability of a clinically significant, sudden or life threatening deterioration of the following system(s) required my full and direct attention, intervention and personal management. The time I documented below is in addition to time spent performing reported procedures but includes the following listed in this critical care notation. Medical Decision Making - Arnie Inquiry Pt receiving controlled substance: No Vital Signs: 06/19/21 14:01 06/19/21 15:30 Temperature 98.1 F Temperature Source Oral Pulse Rate 71 Pulse Rate [Left Radial] 70 Respiratory Rate 16 17 Blood Pressure 139/55 L Blood Pressure [Left Arm] 151/64 H Blood Pressure Mean 83 Blood Pressure Mean [Left Arm] 93 Blood Pressure Source [Left Arm] Automatic Cuff Blood Pressure Position [Left Arm] Sitting 02 Sat by Pulse Oximetry 97 95 Oxygen Delivery Method Room Air - Lab Data Lab Results 06/19/21 14:15: Stool Occult Blood Positive A 06/19/21 14:40: WBC 10.4, RBC 4.66, Hgb 13.3, Hct 41.6, MCV 89.2, MCH 28.5, MCHC 32.0, RDW 15.0, Plt Count 323, MPV 8.8, Neut % (Auto) 59.5, Lymph % (Auto) 33.6, [place] % (Auto) 3.7, Eos % (Auto) 2.6, Baso % (Auto) 0.6, Neut # (Auto) 6.2, Lymph # (Auto) 3.5, [place] # (Auto) 0.4, Eos # (Auto) 0.3, Baso # (Auto) 0.1 06/19/21 14:40: Sodium 141, Potassium 4.0, Chloride 107, Carbon Dioxide 25, Anion Gap 13.0, BUN 7, Creatinine 0.70, Estimated Creat Clear 49, Estimated GFR 82, Est GFR ( Amer) 100, Glucose 136 H, Calcium 9.2, Total Bilirubin 0.3, AST 30, ALT 17, Alkaline Phosphatase 86, Total Protein 6.6, Albumin 3.8, Globulin 2.8, Albumin/Globulin Ratio 1.4 Result diagrams: 06/19/21 14:40 06/19/21 14:40 Orders (Tests/Meds): ED MEDICATIONS Generic Name Dose Route Start Last Admin Trade Name Barbara PRN Reason Stop Dose Admin Sodium Chloride 1,000 mls @ 999 mls/hr 06/19/21 15:44 06/19/21 15:54 Sod Chlor 0.9% 1000ml Bag IV 06/19/21 16:44 999 mls/hr .Q1H1M ONE Administration ORDERS Category Date Time Status Type and Screen Stat BBK 06/19/21 16:07 Ordered Consult to Surgeon On-Call [Consult to On-Call Gen'l Cons 06/19/21 16:07 Ordered Surgeon] [CONS] Routine Rapid PCR Covid and Flu A/B Stat Lab 06/19/21 16:00 Received - Physician Consults Physician Consulted: Christy Time: 16:07 Reason -: Admission, Pt condition Comment/Response: Agrees to admit the patient to the hospital. We discussed the patient's clinical information, including history, exam, laboratory and radiology results and ED course. Per hospital procedure, I will write temporary bridge inpatient orders on the patient. Specific orders requested by the admitting physician: Repeat CBC in 6 hours and in the morning. Consult surgery. Additional Consult: Manish Time: 16:42 Reason -: Surgical Eval/Care General Adult HPI - General Chief complaint: GI Bleed Stated complaint: passing blood through rectum Time Seen by Provider: 06/19/21 15:52 Mode of Arrival: Ambulatory Limitations: No Limitations Description of Symptoms (Recalled from ER Triage Doc. by RN): Pt c/o passing blood clots through stool. Pt states that it began at 1000 today and she has had 5 bm's with minimal fecal matter and mostly blood clots. Pt denies abd pain and/or N/V. Pt states that she called and made an appt with her PCP for 1045 this am but that he had an emergency come up and was unable to see her so she had to come to the ED. - History of Present Illness HPI narrative: Began having bright red blood per rectum at 10 AM. 6 episodes. Associated with clots. Denies abdominal pain, vomiting, fever. Prior history of partial colectomy of the as
--- NOTE | 2021-06-19 16:00 | PC.NURSE ---
Called to have paged.
--- NOTE | 2021-06-19 16:02 | PC.NURSE ---
COVID swab sent to lab
[2021-06-19 16:04] LABS: Coronavirus 19, PCR Not Detected (NotDetected); Influenza A, PCR Not Detected (NotDetected); Influenza B, PCR Not Detected (NotDetected)
[2021-06-19 18:00] VITALS: BP 141/60; PULSE 75; RESP 18; TEMP 36.7; O2SAT 97
[2021-06-19 18:05] VITALS: BP 165/71; PULSE 72; RESP 16; TEMP 36.6; O2SAT 96
[2021-06-19 18:12] VITALS: BMI 44.1
[2021-06-19 20:00] VITALS: BP 159/67; PULSE 65; RESP 17; TEMP 36.6; O2SAT 98
[2021-06-19 22:41] LABS: Basophils % 0.4 % (0.1-2.0); Eosinophils # 0.2 K/mm3 (0.0-0.4); Mean Corpuscular HGB Conc 31.9 g/dL (31.8-35.4); Monocytes # 0.6 K/mm3 (0.1-1.0); Red Cell Distribution Width 14.9 % (11.5-17.5)
[2021-06-19 22:48] LABS: Eosinophils % 1.9 % (0.1-12.0); Hematocrit 33.3 % (37.0-47.0); Lymphocytes # 3.4 K/mm3 (0.7-4.5); Lymphocytes % 27.8 % (10-50); Mean Corpuscular Hemoglobin 28.5 pg (27.0-31.2); Mean Corpuscular Volume 89.3 fl (81-99); Monocytes % 5.2 % (1.7-9.3); Neutrophils # 7.9 K/mm3 (1.8-7.8); Neutrophils % 64.7 % (37.0-80.0); Platelet Count 271 K/mm3 (142-424); Red Blood Count 3.73 M/mm3 (4.20-5.40); White Blood Count 12.2 K/mm3 (4.8-10.8)
[2021-06-19 22:49] LABS: Hemoglobin 10.6 g/dL (12.2-16.2)
--- NOTE | 2021-06-19 23:24 | HMH.GSCON ---
*Admission Date: 06/19/21 *Reason for consult:: GI Bleed *History of present illness: Ms. Marrero is a 71YF with rectal outlet bleeding consistent with lower GI bleed. Multiple episodes of blood per rectum at home. Presented to [facility]. Attributed to diverticulosis. Prior history of right colectomy for right colon polyps in 2013 ([place]). No abdominal pain. No nausea or emesis. Review of Systems - Review of Systems Review of systems:: pertinent systems reviewed and negative unless documented below [facility] History Medical History: Reports:: Anxiety, Asthma, Depression, Gastroesophageal Reflux Disease(GERD), Hyperlipidemia, Hypertension Denies:: Cancer, Diabetes Mellitus Type 1, Diabetes Mellitus Type 2, Internal Pacemaker, MRSA, Seizures *Have you ever received a pneumonia vaccine?: Yes *Have you received a flu vaccine this season?: No Other Medical History: Reports: Cataracts, Hypothyroidism. Denies: Blood Transfusion Reaction Laterality Cases: Left: Arthroscopy Knee, Bilateral: Tonsillectomy, Other Other Surgeries: Yes: Appendectomy, Colonoscopy, Colon Resection, EGD, Sinus Surgery, Other. No: Pacemaker Amputation: No Fractures: Yes (L Leg fx) - *Social History Last grade of school completed: Some college Smoking Status: Former smoker Tobacco Type: cigarettes #Yrs smoked (if former smoker): 5 Smoking End Date: 1975 Alcohol Intake: never Alcohol Intake Frequency:: other Substance Use Type: denies use *Occupational Status:: retired Housing: house Household Members: spouse, other *Travel in the last 8 weeks: None - Psychiatric History Pschychiatric History:: Reports:: Anxiety, Depression Family Hx:: Cancer, Diabetes, Hyperlipidemia, Hypertension Meds Home Medications Medication Instructions Recorded Confirmed Type fluticasone 100 mcg-salmeterol 50 1 puff INHALATION BID 01/31/18 06/19/21 History mcg/dose blistr powdr for inhalation levalbuterol tartrate 45 2 puff INHALATION Q4HP PRN 01/31/18 06/19/21 History mcg/actuation aerosol inhaler lisinopril 40 mg tablet 40 mg PO DAILY 01/31/18 06/19/21 History montelukast 10 mg tablet 10 mg PO HS 01/31/18 06/19/21 History sertraline 100 mg tablet 100 mg PO DAILY 01/31/18 06/19/21 History Levothyroxine Sodium 88 mcg PO DAILY 02/20/18 06/19/21 History [Levothyroxine 88mcg (0.088mg) Tab] Glucosamine Sulfate Dipot Chlr 1,000 mg PO DAILY 09/24/18 06/19/21 History [Glucosamine] Simvastatin [Zocor] 80 mg PO DAILY 09/25/18 06/19/21 History acetaminophen 500 mg tablet 500 mg PO Q6H PRN 01/27/20 06/19/21 History ibuprofen 200 mg tablet 200 mg PO Q6H PRN 01/27/20 06/19/21 History polyethylene glycol 3350 17 17 g PO DAILY 01/27/20 06/19/21 History gram/dose oral powder Ascorbic Acid [Vitamin C 500mg 1,000 mg PO BID 06/19/21 06/19/21 History tablet] Calcium Carbonate [Calcium] 2,000 mg PO DAILY 06/19/21 06/19/21 History Cranberry 500 mg PO DAILY 06/19/21 06/19/21 History Allergies Allergy/AdvReac Type Severity Reaction Status Date / Time clarithromycin Allergy hives Verified 02/01/21 13:03 doxycycline Allergy tears Verified 02/01/21 13:03 stomach up levofloxacin [From Levaquin] Allergy Verified 02/01/21 13:03 steris strips Allergy Hives Uncoded 03/16/20 15:00 Exam Vital signs and Labs for Last 24 Hours: Temp Pulse Resp BP Pulse Ox 98 F 65 17 159/67 H 98 06/19/21 20:00 06/19/21 20:00 06/19/21 20:00 06/19/21 20:00 06/19/21 20:00 Laboratory Results - last 24 hr 06/19/21 14:15: Stool Occult Blood Positive A 06/19/21 14:40: WBC 10.4, RBC 4.66, Hgb 13.3, Hct 41.6, MCV 89.2, MCH 28.5, MCHC 32.0, RDW 15.0, Plt Count 323, MPV 8.8, Neut % (Auto) 59.5, Lymph % (Auto) 33.6, [place] % (Auto) 3.7, Eos % (Auto) 2.6, Baso % (Auto) 0.6, Neut # (Auto) 6.2, Lymph # (Auto) 3.5, [place] # (Auto) 0.4, Eos # (Auto) 0.3, Baso # (Auto) 0.1 06/19/21 14:40: Sodium 141, Potassium 4.0, Chloride 107, Carbon Dioxide 25, Anion Gap 13.0, BUN 7, Creatinine 0.70, Estimated Cr
[2021-06-20] VITALS: BP 139/69; PULSE 72; RESP 18; TEMP 36.7; O2SAT 98
--- NOTE | 2021-06-20 03:12 | PC.NURSE ---
Patient is A&Ox4. Patient bowel sounds are active in all 4 quadrants. No tenderness, no n/v, or firmness noted upon assessment. Patient has continued to have misa blood in bowel movements. No acute changes noted this shift. VSS, call light within reach, will continue to monitor.
[2021-06-20 04:00] VITALS: BP 121/68; PULSE 66; RESP 16; TEMP 36.7; O2SAT 98
[2021-06-20 04:39] VITALS: BMI 44.1
[2021-06-20 06:37] LABS: Basophils % 0.3 % (0.1-2.0); Eosinophils # 0.3 K/mm3 (0.0-0.4); Hematocrit 32.8 % (37.0-47.0); Hemoglobin 10.2 g/dL (12.2-16.2); Lymphocytes # 3.5 K/mm3 (0.7-4.5); Lymphocytes % 34.6 % (10-50); Mean Corpuscular HGB Conc 31.2 g/dL (31.8-35.4); Mean Corpuscular Hemoglobin 28.5 pg (27.0-31.2); Mean Corpuscular Volume 91.4 fl (81-99); Mean Platelet Volume 9.2 fl (7.4-10.4); Monocytes # 0.4 K/mm3 (0.1-1.0); Monocytes % 4.1 % (1.7-9.3); Neutrophils # 5.9 K/mm3 (1.8-7.8); Platelet Count 251 K/mm3 (142-424); Red Blood Count 3.59 M/mm3 (4.20-5.40); Red Cell Distribution Width 15.3 % (11.5-17.5); White Blood Count 10.1 K/mm3 (4.8-10.8)
[2021-06-20 08:00] VITALS: BP 159/55; PULSE 71; RESP 18; TEMP 36.6; O2SAT 95
--- NOTE | 2021-06-20 08:15 | HMH.HP ---
*Admission Date: 06/19/21 [facility] History Medical History: Reports:: Anxiety, Asthma, Depression, Gastroesophageal Reflux Disease(GERD), Hyperlipidemia, Hypertension Denies:: Cancer, Diabetes Mellitus Type 1, Diabetes Mellitus Type 2, Internal Pacemaker, MRSA, Seizures *Have you ever received a pneumonia vaccine?: Yes *Have you received a flu vaccine this season?: No Other Medical History: Reports: Cataracts, Hypothyroidism. Denies: Blood Transfusion Reaction Laterality Cases: Left: Arthroscopy Knee, Bilateral: Tonsillectomy, Other Other Surgeries: Yes: Appendectomy, Colonoscopy, Colon Resection, EGD, Sinus Surgery, Other. No: Pacemaker Amputation: No Fractures: Yes (L Leg fx) - *Social History Last grade of school completed: Some college Smoking Status: Former smoker Tobacco Type: cigarettes #Yrs smoked (if former smoker): 5 Smoking End Date: 1975 Alcohol Intake: never Alcohol Intake Frequency:: other Substance Use Type: denies use *Occupational Status:: retired Housing: house Household Members: spouse, other *Travel in the last 8 weeks: None - Psychiatric History Pschychiatric History:: Reports:: Anxiety, Depression Family Hx:: Cancer, Diabetes, Hyperlipidemia, Hypertension Meds Home Medications Medication Instructions Recorded Confirmed Type fluticasone 100 mcg-salmeterol 50 1 puff INHALATION BID 01/31/18 06/19/21 History mcg/dose blistr powdr for inhalation levalbuterol tartrate 45 2 puff INHALATION Q4HP PRN 01/31/18 06/19/21 History mcg/actuation aerosol inhaler lisinopril 40 mg tablet 40 mg PO DAILY 01/31/18 06/19/21 History montelukast 10 mg tablet 10 mg PO HS 01/31/18 06/19/21 History sertraline 100 mg tablet 100 mg PO DAILY 01/31/18 06/19/21 History Levothyroxine Sodium 88 mcg PO DAILY 02/20/18 06/19/21 History [Levothyroxine 88mcg (0.088mg) Tab] Glucosamine Sulfate Dipot Chlr 1,000 mg PO DAILY 09/24/18 06/19/21 History [Glucosamine] Simvastatin [Zocor] 80 mg PO DAILY 09/25/18 06/19/21 History acetaminophen 500 mg tablet 500 mg PO Q6H PRN 01/27/20 06/19/21 History ibuprofen 200 mg tablet 200 mg PO Q6H PRN 01/27/20 06/19/21 History polyethylene glycol 3350 17 17 g PO DAILY 01/27/20 06/19/21 History gram/dose oral powder Ascorbic Acid [Vitamin C 500mg 1,000 mg PO BID 06/19/21 06/19/21 History tablet] Calcium Carbonate [Calcium] 2,000 mg PO DAILY 06/19/21 06/19/21 History Cranberry 500 mg PO DAILY 06/19/21 06/19/21 History Allergies Allergy/AdvReac Type Severity Reaction Status Date / Time clarithromycin Allergy hives Verified 02/01/21 13:03 doxycycline Allergy tears Verified 02/01/21 13:03 stomach up levofloxacin [From Levaquin] Allergy Verified 02/01/21 13:03 steris strips Allergy Hives Uncoded 03/16/20 15:00 Exam Vital signs and Labs for Last 24 Hours: Temp Pulse Resp BP Pulse Ox 98.1 F 66 16 121/68 98 06/20/21 04:00 06/20/21 04:00 06/20/21 04:00 06/20/21 04:00 06/20/21 04:00 Laboratory Results - last 24 hr 06/19/21 14:15: Stool Occult Blood Positive A 06/19/21 14:40: WBC 10.4, RBC 4.66, Hgb 13.3, Hct 41.6, MCV 89.2, MCH 28.5, MCHC 32.0, RDW 15.0, Plt Count 323, MPV 8.8, Neut % (Auto) 59.5, Lymph % (Auto) 33.6, Dade % (Auto) 3.7, Eos % (Auto) 2.6, Baso % (Auto) 0.6, Neut # (Auto) 6.2, Lymph # (Auto) 3.5, Dade # (Auto) 0.4, Eos # (Auto) 0.3, Baso # (Auto) 0.1 06/19/21 14:40: Sodium 141, Potassium 4.0, Chloride 107, Carbon Dioxide 25, Anion Gap 13.0, BUN 7, Creatinine 0.70, Estimated Creat Clear 49, Estimated GFR 82, Est GFR ( Amer) 100, Glucose 136 H, Calcium 9.2, Total Bilirubin 0.3, AST 30, ALT 17, Alkaline Phosphatase 86, Total Protein 6.6, Albumin 3.8, Globulin 2.8, Albumin/Globulin Ratio 1.4 06/19/21 16:00: SARS-CoV-2 (PCR) Not detected, Influenza A Untype (PCR) Not detected, Influenza Type B (PCR) Not detected 06/19/21 18:30: Blood Type O Positive, Antibody Screen Negative 06/19/21 22:30: WBC 12.2 H, RBC 3.73 L, Hgb 10.6 L D, Hct 33.3 L, MCV 8
--- NOTE | 2021-06-20 08:32 | HMH.GSPN ---
Subjective Narrative: Ms. Marrero is a 71YF admitted for lower GI bleed. Today is HD #2. No further melena or hematochezia. No abdominal pain. Tolerating diet. H/H stable. Progress Note: A&P Assessment and Plan for All Diagnoses:: 1. Lower GI Bleed. Seems to be self limited. H/H stable and tolerating. Agree with discharge planning per primary team. At this time, no endoscopic or surgical intervention warranted. recommend outpatient colonoscopy in next 4-6 weeks. Exam Vital signs and Labs for Last 24 Hours: Temp Pulse Resp BP Pulse Ox 98.1 F 66 16 121/68 98 06/20/21 04:00 06/20/21 04:00 06/20/21 04:00 06/20/21 04:00 06/20/21 04:00 Laboratory Results - last 24 hr 06/19/21 14:15: Stool Occult Blood Positive A 06/19/21 14:40: WBC 10.4, RBC 4.66, Hgb 13.3, Hct 41.6, MCV 89.2, MCH 28.5, MCHC 32.0, RDW 15.0, Plt Count 323, MPV 8.8, Neut % (Auto) 59.5, Lymph % (Auto) 33.6, Brantley % (Auto) 3.7, Eos % (Auto) 2.6, Baso % (Auto) 0.6, Neut # (Auto) 6.2, Lymph # (Auto) 3.5, Brantley # (Auto) 0.4, Eos # (Auto) 0.3, Baso # (Auto) 0.1 06/19/21 14:40: Sodium 141, Potassium 4.0, Chloride 107, Carbon Dioxide 25, Anion Gap 13.0, BUN 7, Creatinine 0.70, Estimated Creat Clear 49, Estimated GFR 82, Est GFR ( Amer) 100, Glucose 136 H, Calcium 9.2, Total Bilirubin 0.3, AST 30, ALT 17, Alkaline Phosphatase 86, Total Protein 6.6, Albumin 3.8, Globulin 2.8, Albumin/Globulin Ratio 1.4 06/19/21 16:00: SARS-CoV-2 (PCR) Not detected, Influenza A Untype (PCR) Not detected, Influenza Type B (PCR) Not detected 06/19/21 18:30: Blood Type O Positive, Antibody Screen Negative 06/19/21 22:30: WBC 12.2 H, RBC 3.73 L, Hgb 10.6 L D, Hct 33.3 L, MCV 89.3, MCH 28.5, MCHC 31.9, RDW 14.9, Plt Count 271, MPV 9.0, Neut % (Auto) 64.7, Lymph % (Auto) 27.8, Brantley % (Auto) 5.2, Eos % (Auto) 1.9, Baso % (Auto) 0.4, Neut # (Auto) 7.9 H, Lymph # (Auto) 3.4, Brantley # (Auto) 0.6, Eos # (Auto) 0.2, Baso # (Auto) 0.0 06/20/21 06:08: WBC 10.1, RBC 3.59 L, Hgb 10.2 L, Hct 32.8 L, MCV 91.4, MCH 28.5, MCHC 31.2 L, RDW 15.3, Plt Count 251, MPV 9.2, Neut % (Auto) 58.0, Lymph % (Auto) 34.6, Brantley % (Auto) 4.1, Eos % (Auto) 3.0, Baso % (Auto) 0.3, Neut # (Auto) 5.9, Lymph # (Auto) 3.5, Brantley # (Auto) 0.4, Eos # (Auto) 0.3, Baso # (Auto) 0.0 I & O for Last 24 hours: Intake & Output 06/17/21 06/18/21 06/19/21 06/20/21 11:59 11:59 11:59 11:59 Intake Total 240 / 240 Balance 240 / 240 Weight 127.459 kg - Constitutional no acute distress - *Routine Abdominal Exam Present: soft, normoactive bowel sounds. Absent: tenderness
--- NOTE | 2021-06-20 08:38 | HMH.PHAINT ---
MEDICATION RECONCILIATION COMPLETE USING EXTERNAL PHARMACY FILL HISTORY AND LIST FROM MD OFFICE VISIT 01/2021.
--- NOTE | 2021-06-20 08:39 | P.CONPHA_ITS ---
[facility] [place] Pharmacy VTE Monitoring - Patient Demographics Admission date: 06/19/21 Report Date: 06/20/21 Time: 08:39 Allergies/Adverse Reactions: Patient Allergies clarithromycin Allergy (Verified 02/01/21 13:03) hives doxycycline Allergy (Verified 02/01/21 13:03) tears stomach up levofloxacin [From Levaquin] Allergy (Verified 02/01/21 13:03) steris strips Allergy (Uncoded 03/16/20 15:00) Hives Height: 1.7 m Weight: 127.459 kg Patient Problems: Current Active Problems Lower GI bleeding (Acute) - VTE Risk Labs: VTE Related Lab Results Hgb 10.2 g/dL (12.2-16.2) L 06/20/21 06:08 Hct 32.8 % (37.0-47.0) L 06/20/21 06:08 Plt Count 251 K/mm3 (142-424) 06/20/21 06:08 BUN 7 mg/dl (7-17) 06/19/21 14:40 Creatinine 0.70 mg/dl (0.52-1.04) 06/19/21 14:40 Estimated Creat Clear 49 mL/min (50-200) 06/19/21 14:40 Was VTE Risk Assessment Performed: Yes VTE Score: 1 VTE Risk Level: Low Risk Clinical Trial Participant: No - Prophylaxis VTE Prophylaxis Ordered?: Yes Types of VTE Prophylaxis: TEDS Knee High Location of Applied Device: Bilateral Lower Extremeties
--- NOTE | 2021-06-20 13:34 | HMH.HPDC ---
General - General Admission date:: 06/19/21 Discharge date: 06/20/21 *Admission Date: 06/19/21 *Chief complaint: Rectal bleeding *History of present illness: Saida is a 71-year-old white female with a history of hypertension, hyperlipidemia, hypothyroidism, and asthma who was in her usual state of health until yesterday morning. She was working in her yard when she felt the urge to defecate and when she went to the bathroom she passed a large amount of bright red blood with clots. This was followed quickly by for 5 more bowel movements with bleeding and clots. There was very little stool. No complaints of abdominal pain prior to the bleeding episodes. No rectal pain. Past GI history is significant for undergoing a colon resection in [address] Renae for large adenomatous polyp. She had a follow-up colonoscopy in 2014 which reportedly was normal. She perhaps remembers some mention of diverticulosis at the time. She presented to the emergency room with these complaints. Her initial H&H was normal and she was hemodynamically stable.. She was admitted for close monitoring of her hemodynamic status. [facility] History Medical History: Reports:: Anxiety, Asthma, Depression, Gastroesophageal Reflux Disease(GERD), Hyperlipidemia, Hypertension Denies:: Cancer, Diabetes Mellitus Type 1, Diabetes Mellitus Type 2, Internal Pacemaker, MRSA, Seizures *Have you ever received a pneumonia vaccine?: No *Have you received a flu vaccine this season?: No Other Medical History: Reports: Cataracts, Hypothyroidism. Denies: Blood Transfusion Reaction Laterality Cases: Bilateral: Tonsillectomy, Other (Repair of left tibial plateau fracture) Other Surgeries: Yes: Appendectomy, Colonoscopy, Colon Resection (For large adenomatous polyp 2012), EGD, Sinus Surgery, Other. No: Pacemaker Amputation: No Fractures: Yes (L Leg fx) - *Social History Last grade of school completed: Some college Smoking Status: Former smoker Tobacco Type: cigarettes #Yrs smoked (if former smoker): 5 Smoking End Date: 1975 Alcohol Intake: never Substance Use Type: denies use *Occupational Status:: retired Housing: house Household Members: spouse, other *Travel in the last 8 weeks: None - Psychiatric History Pschychiatric History:: Reports:: Anxiety, Depression Family Hx:: Cancer, Diabetes, Hyperlipidemia, Hypertension Review of Systems - Constitutional Denies fever(s), Denies weight loss - Eyes Denies blurry vision, Denies change in vision - ENT Reports nasal congestion, Denies abnormal hearing, Denies dizziness, Denies difficulty swallowing - *Cardiovascular Denies chest pain, Denies shortness of breath, Denies irregular heart rhythm - *Respiratory Denies chest congestion, Denies cough, Denies coughing up blood - *Gastrointestinal Reports other (See HPI) - *Genitourinary Denies abnormal vaginal bleeding, Denies painful urination, Denies urinary incontinence - *Musculoskeletal Denies joint swelling, Denies muscle weakness - Integumentary/Breasts Denies change in skin color, Denies itching, Denies rash - *Neurologic Denies confusion, Denies dizziness, Denies memory loss - Psychiatric Denies behavioral changes - Endocrine Denies cold intolerance, Denies excessive sweating - Hematologic/Lymphatic Denies easy bruising - Allergic/Immunologic Denies throat swelling Exam Vital signs and Labs for Last 24 Hours: Temp Pulse Resp BP Pulse Ox 97.9 F 71 18 159/55 H 95 06/20/21 08:00 06/20/21 08:00 06/20/21 08:00 06/20/21 08:00 06/20/21 08:00 Laboratory Results - last 24 hr 06/19/21 14:15: Stool Occult Blood Positive A 06/19/21 14:40: WBC 10.4, RBC 4.66, Hgb 13.3, Hct 41.6, MCV 89.2, MCH 28.5, MCHC 32.0, RDW 15.0, Plt Count 323, MPV 8.8, Neut % (Auto) 59.5, Lymph % (Auto) 33.6, Evans % (Auto) 3.7, Eos % (Auto) 2.6, Baso % (Auto) 0.6, Neut # (Auto) 6.2, Lymph # (Auto) 3.5, Evans # (Auto) 0.4, Eos # (Auto) 0.3, Baso # (Auto) 0.1 06/19/21 14:
== END 2021-06-20 13:15 | disposition home or self-care (01) ==
LOC: ER 16:08 → 2ND 16:59
PROVIDERS: Admitting Provider Family Medicine; Emergency Provider Emergency Medicine; PCP Family Medicine; Visit Provider Family Medicine
DX: K92.2 Gastrointestinal hemorrhage, unspecified (principal); I10 Essential (primary) hypertension; E03.9 Hypothyroidism, unspecified; E78.5 Hyperlipidemia, unspecified; K21.9 Gastro-esophageal reflux disease without esophagitis; Z79.899 Other long term (current) drug therapy; Z20.822 Contact with and (suspected) exposure to COVID-19
CPT/HCPCS: G0378; 36415; 80053; 82272; 85025; 86850; 96365; 99284; C9803; G0328; U0003; U0005

== ENCOUNTER → 2022-03-01 09:16 | Outpatient (CLI) | payer MEDICARE, BC, SELFPAY ==
[2022-03-01 09:57] LABS: Basophils % 0.2 % (0.1-2.0); Eosinophils # 0.3 K/mm3 (0.0-0.4); Eosinophils % 2.7 % (0.1-12.0); Hematocrit 39.7 % (37.0-47.0); Hemoglobin 13.6 g/dL (12.2-16.2); Lymphocytes # 3.1 K/mm3 (0.7-4.5); Lymphocytes % 30.7 % (10-50); Mean Corpuscular HGB Conc 34.2 g/dL (31.8-35.4); Mean Corpuscular Hemoglobin 28.2 pg (27.0-31.2); Mean Corpuscular Volume 82.5 fl (81-99); Monocytes # 0.8 K/mm3 (0.1-1.0); Monocytes % 7.8 % (1.7-9.3); Neutrophils # 5.9 K/mm3 (1.8-7.8); Neutrophils % 58.6 % (37.0-80.0); Platelet Count 269 K/mm3 (142-424); Red Blood Count 4.82 M/mm3 (4.20-5.40); Red Cell Distribution Width 15.4 % (11.5-17.5)
[2022-03-01 10:16] LABS: Chloride 106 mmol/L (98-107); Potassium 4.3 mmoL/L (3.5-5.1); Sodium 138 mmol/L (136-145)
[2022-03-01 10:19] LABS: Alanine Aminotransferase 19 U/L (12-78); Albumin/Globulin Ratio 1.7 (1.1-1.8); Alkaline Phosphatase 94 U/L (38-126); Anion Gap 12.3 mEq/L (5-15); Aspartate Amino Transferase 23 U/L (14-36); Bilirubin,Total 0.4 mg/dl (0.2-1.3); Blood Urea Nitrogen 14 mg/dl (7-17); Carbon Dioxide 24 mmol/L (22.0-30.0); Cholesterol 125 mg/dl (140-200); Estimated Glomerular Filt Rate 62 ml/min (>60); GFR (African American) 74 ML/MIN (>60); Globulin 2.4 g/dL (1.3-3.2); Total Protein,Serum 6.4 g/dl (6.3-8.2); Triglycerides 143 mg/dl (30-150); VLDL Cholesterol 29 mg/dL (0-40)
[2022-03-01 10:20] LABS: Calcium 9.8 mg/dl (8.4-10.2); Glucose 171 mg/dl (74-100); HDL Cholesterol 41 mg/dl (40-60)
[2022-03-01 10:31] LABS: Direct LDL Cholesterol 67.48 mg/dL (100-129)
[2022-03-01 10:50] LABS: Thyroid Stimulating Hormone 2.23 uIU/mL (0.465-4.68)
[2022-03-01 11:00] LABS: Hemoglobin A1C 7.6 % (4.0-6.0)
== END ==
PROVIDERS: PCP Family Medicine; Visit Provider Family Medicine
DX: E03.9 Hypothyroidism, unspecified (principal); E78.5 Hyperlipidemia, unspecified; I10 Essential (primary) hypertension; E11.9 Type 2 diabetes mellitus without complications
CPT/HCPCS: 36415; 80053; 80061; 83036; 84443; 85025

== ENCOUNTER → 2022-03-21 08:19 | Outpatient (CLI) | payer MEDICARE, BC, SELFPAY ==
--- NOTE | 2022-03-21 08:26 | XR_ITS ---
FINAL REPORT TECHNIQUE: Bone densitometry calculations of the lumbar spine and left hip were obtained. CLINICAL HISTORY: . screening COMPARISON: 06/18/2019 FINDINGS: DEXA BONE DENSITY AXIAL SKELETON Using L1-4, the bone mineral density of the spine is 1.411 g/cm2, corresponding to T-score of 3.3. Previously measured 1.586 g/cm2, corresponding to T-score of 3.4 Using the left hip, the bone mineral density of the femoral neck is 0.882 g/cm2, corresponding to a T-score of 0.3. Previously measured 0.751 g/cm2, corresponding to T-score of -2.1. NOTE: T-score: Standard deviation compared with peak bone mass of young adult mean. *Following the recommendations of the International Society of Bone densitometry, classification of hip BMD is based on the lower of two T-scores; total hip or femoral neck. IMPRESSION: Normal bone mineral density of the lumbar spine and hip. Reviewed, Interpreted and Dictated by Antonette Morales MD Transcribed by Sabiha Quiroga Authenticated and [facility]
--- NOTE | 2022-03-21 08:26 | MM_ITS ---
PROCEDURE INFORMATION: Exam: MG Bilateral Screening 3D Mammography Exam date and time: 03/21/2022 8:26 AM Age: 71 years old Clinical indication: Screening examination TECHNIQUE: Imaging protocol: Bilateral Screening tomosynthesis and 2D mammography including computer-aided detection (CAD) when performed. COMPARISON: 1. MG MM DIG SCREENING MAMM BI W/CAD 01/21/2020 9:05 AM 2. MG DIG MAMM-SCREEN DAISY 12/31/2018 8:47 AM 3. MG DMSB DIG MAMM-SCREEN DAISY 08/05/2015 5:16 PM FINDINGS: MAMMOGRAPHY: Breast composition: The breasts are heterogeneously dense, which may obscure small masses. Mass: There is a new 1.8 cm partially obscured, partially circumscribed mass in the central, slightly medial left breast, middle depth, best seen on CC frame 46, MLO frame 48. . Innumerable benign-appearing scattered circumscribed masses are noted bilaterally. Architectural distortion: No suspicious distortion. Calcifications: No suspicious calcifications. Asymmetric density: None. Skin thickening: None. Axillary adenopathy: None. IMPRESSION: 1. Recommend left breast spot compression CC/MLO view and ultrasound for further evaluation of a new 1.8 cm mass in the central, slightly medial left breast. 2. No definite mammographic evidence of malignancy in the right breast. ASSESSMENT: BI-RADS Category 0: Incomplete- Need Additional Imaging Evaluation and/or Prior Mammograms for Comparison
== END ==
PROVIDERS: PCP Family Medicine; Visit Provider Family Medicine
DX: Z12.31 Encounter for screening mammogram for malignant neoplasm of breast (principal); Z78.0 Asymptomatic menopausal state
CPT/HCPCS: 77063; 77067; 77080

== ENCOUNTER → 2022-12-23 07:10 | Outpatient (CLI) | payer MEDICARE, BC, SELFPAY ==
[2022-12-23 08:24] LABS: Chloride 107 mmol/L (98-107)
[2022-12-23 08:25] LABS: Potassium 4.6 mmoL/L (3.5-5.1); Sodium 142 mmol/L (136-145)
[2022-12-23 08:27] LABS: Alanine Aminotransferase 19 U/L (12-78); Albumin/Globulin Ratio 1.6 (1.1-1.8); Alkaline Phosphatase 76 U/L (38-126); Anion Gap 11.6 mEq/L (5-15); Aspartate Amino Transferase 21 U/L (14-36); Bilirubin,Total 0.4 mg/dl (0.2-1.3); Blood Urea Nitrogen 13 mg/dl (7-17); Carbon Dioxide 28 mmol/L (22.0-30.0); Cholesterol 139 mg/dl (140-200); Estimated Glomerular Filt Rate 54 ml/min (>60); GFR (African American) 66 ML/MIN (>60); Globulin 2.5 g/dL (1.3-3.2); Total Protein,Serum 6.5 g/dl (6.3-8.2); Triglycerides 158 mg/dl (30-150); VLDL Cholesterol 32 mg/dL (0-40)
[2022-12-23 08:28] LABS: Calcium 9.1 mg/dl (8.4-10.2); Chol/HDL Ratio 2.8 (1-3.5); Glucose 124 mg/dl (74-100); HDL Cholesterol 50 mg/dl (40-60)
[2022-12-23 08:39] LABS: Direct LDL Cholesterol 67.23 mg/dL (100-129)
[2022-12-23 08:58] LABS: Thyroid Stimulating Hormone 4.28 uIU/mL (0.465-4.68)
[2022-12-23 09:04] LABS: Hemoglobin A1C 6.4 % (4.0-6.0)
== END ==
PROVIDERS: PCP Family Medicine; Visit Provider Family Medicine
DX: I10 Essential (primary) hypertension (principal); E03.9 Hypothyroidism, unspecified; E78.5 Hyperlipidemia, unspecified; E11.9 Type 2 diabetes mellitus without complications; Z79.84 Long term (current) use of oral hypoglycemic drugs
CPT/HCPCS: 36415; 80053; 80061; 83036; 84443

== ENCOUNTER → 2023-01-02 14:30 | Outpatient (CLI) | payer MEDICARE, BC, SELFPAY ==
--- NOTE | 2023-01-02 14:35 | MM_ITS ---
PROCEDURE INFORMATION: Exam: US Left Breast, Complete MG Left Diagnostic Breast Tomosynthesis Exam date and time: 01/02/2023 2:27 PM Age: 72 years old Clinical indication: Patient recalled on the basis of a screening mammogram for further evaluation; Left breast; mass TECHNIQUE: Imaging protocol: Complete ultrasound of all four quadrants of the left breast and the retroareolar regions, including ultrasound of the axilla when performed. Left Diagnostic tomosynthesis and 2D mammography including computer-aided detection (CAD) when performed. Unilateral or bilateral exam. COMPARISON: 1. MG MM DIG SCREENING MAMM BI W/CAD 03/21/2022 8:26 AM 2. MG MM DIG SCREENING MAMM BI W/CAD 01/21/2020 9:05 AM FINDINGS: MAMMOGRAPHY: Digital diagnostic spot compression views of the middle third of the left upper inner quadrant demonstrates a persistent 1.8 cm mass ULTRASOUND: Sonographic images of the left breast including the retroareolar region, all 4 quadrants and the axilla do not demonstrate any solid masses. Two adjacent cysts with a combined dimension of 1.3 cm are noted in the 1 o'clock axis 3 cm from the nipple . 2 cm cyst in the left 6 o'clock axis 3 cm from the nipple most closely corresponds to the mass on mammography. Additional scattered predominantly subcentimeter cysts are noted throughout the left breast. No architectural distortion or acoustical shadowing. No skin thickening or axillary adenopathy. IMPRESSION: Mass on screening mammography corresponds to underlying cystic change sonographically. There is no mammographic evidence of malignancy.Annual bilateral mammographic screening is recommended unless otherwise clinically indicated. ASSESSMENT: BI-RADS Category 2: Benign
== END ==
PROVIDERS: PCP Family Medicine; Visit Provider Family Medicine
DX: R92.8 Other abnormal and inconclusive findings on diagnostic imaging of breast (principal)
CPT/HCPCS: 76641; 77061; 77065; G0279

== ENCOUNTER 2024-01-12 10:44 | Outpatient (CLI) | payer MEDICARE, BC, SELFPAY ==
--- NOTE | 2024-01-12 10:48 | MM_ITS ---
PROCEDURE INFORMATION: Exam: MG Bilateral Screening 3D Mammography Exam date and time: 01/12/2024 10:48 AM Age: 73 years old Clinical indication: Screening examination TECHNIQUE: Imaging protocol: Bilateral Screening tomosynthesis and 2D mammography including computer-aided detection (CAD) when performed. COMPARISON: 1. MG MM DIG MAMM DX UNILAT LT CAD 01/02/2023 2:27 PM 2. MG MM DIG SCREENING MAMM BI W/CAD 03/21/2022 8:26 AM FINDINGS: MAMMOGRAPHY: Breast composition: The breasts are heterogeneously dense, which may obscure small masses. Mass: No new or suspicious masses Architectural distortion: None. Calcifications: No suspicious calcifications. Asymmetric density: None. Skin thickening: None. Axillary adenopathy: None. IMPRESSION: No mammographic evidence of malignancy. Annual screening is recommended unless otherwise clinically indicated. 0 ASSESSMENT: BI-RADS Category 1: Negative
== END 2024-01-12 23:59 | disposition home or self-care (01) ==
LOC: RAD 10:45
PROVIDERS: PCP Family Medicine; Visit Provider Family Medicine
DX: Z12.31 Encounter for screening mammogram for malignant neoplasm of breast (principal)
CPT/HCPCS: 77063; 77067

== ENCOUNTER 2025-01-14 15:13 | Outpatient (CLI) | payer MEDICARE, BC, SELFPAY ==
--- NOTE | 2025-01-14 15:16 | MM_ITS ---
PROCEDURE INFORMATION: Exam: MG Bilateral Screening 3D Mammography Exam date and time: 01/14/2025 3:42 PM Age: 74 years old Clinical indication: Screening examination TECHNIQUE: Imaging protocol: Bilateral Screening tomosynthesis and 2D mammography including computer-aided detection (CAD) when performed. COMPARISON: 1. MG MM DIG SCREENING MAMM BI W/CAD 01/12/2024 10:48 AM 2. MG MM DIG MAMM DX UNILAT LT CAD 01/02/2023 2:27 PM FINDINGS: MAMMOGRAPHY: Breast composition: The breasts are heterogeneously dense, which may obscure small masses. Mass: No new or suspicious masses. Architectural distortion: None. Calcifications: No suspicious calcifications. Asymmetric density: None. Skin thickening: None. Axillary adenopathy: None. Other findings: Widespread fine nodular pattern without significant interval change; IMPRESSION: No mammographic evidence of malignancy. Annual screening is recommended unless otherwise clinically indicated. ASSESSMENT: BI-RADS 1, Negative.
== END 2025-01-14 23:59 | disposition home or self-care (01) ==
LOC: RAD 15:14
PROVIDERS: PCP Family Medicine; Visit Provider Family Medicine
DX: Z12.31 Encounter for screening mammogram for malignant neoplasm of breast (principal); R92.333 Mammographic heterogeneous density, bilateral breasts
CPT/HCPCS: 77063; 77067